=== PATIENT | female | born 1975 | race African-American/Black ===

== ENCOUNTER 2025-03-03 11:29 | Inpatient (IN) | payer OTHER ==
[~2025-03-03] VITALS: Ht 162.6 cm; Wt 102.0 kg
--- NOTE | 2025-03-03 11:54 | ECG ---
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
--- NOTE | 2025-03-03 12:49 | ED.PDOC ---
History of Present Illness HPI Comments 49-year-old female came to the ER complaining of abdominal pain discomfort for the past few days. She did have liposuction done a week ago. History of umbilical hernia repair. No radiation of the abdominal pain. She is unable to ambulate without having pain. History of hypertension diabetes. She is able to have a bowel movement. Denies nausea vomiting. Denies any other symptoms. 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 History Social History Smoker: Non-Smoker Alcohol: Denies ETOH Use Drugs: Denies Drug Use Constitutional: denies: chills, diaphoresis, fatigue, fever, malaise, sweats, weakness, others EENTM: denies: blurred vision, double vision, ear bleeding, ear discharge, ear drainage, ear pain, ear ringing, eye pain, eye redness, hearing loss, mouth pain, mouth swelling, nasal discharge, nose bleeding, nose congestion, nose pain, photophobia, tearing, throat pain, throat swelling, voice changes, others Respiratory: denies: cough, hemoptysis, orthopnea, SOB at rest, shortness of breath, SOB with excertion, stridor, wheezing, others Cardiovascular: denies: chest pain, dizzy spells, diaphoresis, Dyspnea on exertion, edema, irregular heart beat, left arm pain, lightheadedness, palpitations, PND, syncope, others Gastrointestinal: denies: abdomen distended, abdominal pain, blood streaked bowels, constipated, diarrhea, dysphagia, difficulty swallowing, hematemesis, melena, nausea, poor appetite, poor fluid intake, rectal bleeding, rectal pain, vomiting, others Genitourinary: denies: abnormal vagina bleeding, burning, dyspareunia, dysuria, flank pain, frequency, hematuria, incontinence, pain, , vagina discharge, urgency, others Neurological: denies: dizziness, fainting, headache, left sided numbness, left sided weakness, numbness, paresthesia, pre-existing deficit, right sided numbness, right sided weakness, seizure, speech problems, tingling, tremors, weakness, others Musculoskeletal: denies: back pain, gout, joint pain, joint swelling, muscle pain, muscle stiffness, neck pain, others Integumetry: denies: bruises, change in color, change in hair/nails, dryness, laceration, lesions, lumps, rash, wounds, others Allergic/Immunocompromised: denies: Difficulty Healing, Frequent Infections, Hives, Itching, others Hematologic/Lymphatic: denies: anemia, blood clots, easy bleeding, easy bruising, swollen glands, others Endocrine: denies: excessive hunger, excessive sweating, excessive thirst, excessive urination, flushing, intolerance to cold, intolerance to heat, une xplained weight gain, unexplained weight loss, others Psychiatric: denies: anxiety, bipolar disorder, depression, hopeless, panic disorder, schizophrenia, sleepless, suicidal, others Physical Exam General Appearance: Moderate Distress HEENT: Normal ENT Inspection, Pharynx Normal, TMs Normal Neck: Full Range of Motion, Non-Tender, Normal, Normal Inspection Respiratory: Chest Non-Tender, Lungs Clear, No Accessory Muscle Use, No Respiratory Distress, Normal Breath Sounds Cardiovascular: No Edema, No JVD, No Murmur, No Gallop, Normal Peripheral Pulses, Regular Rate/Rhythm Breast Exam: Deferred Gastrointestinal: No Organomegaly, Non Tender, No Pulsatile Mass, Normal Bowel Sounds, Soft Genitalia: Deferred Pelvic: Deferred Rectal: Deferred Extremities: No calf tenderness, Normal capillary refill, Normal inspection, Normal range of motion, Non-tender, No pedal edema Musculoskeletal : Apperance: Normal Neurologic: Alert, hooker on II-XII nml as Tested, No Motor Deficits, Normal Affect, Normal Mood, No Sensory Deficits Cerebellar Function: NOT DONE Reflexes: NOT DONE Skin: Dry, Normal Color, Warm Peripheral Pulses: 3+ Radial (R), 3+ Radial (L) Lymphatic: No Adenopathy Was a procedure done? Was a procedure done?: No Differential Dx Considerations may include: Anemia Electrolyte imbalance X-Ray, Labs, Meds, VS Vital Signs Date Time Temp Pulse Resp B/P (MAP) Pulse Ox O2 Delivery O2 Flow Rate FiO2 03/03/25 15:48 90 17 137/71 03/03/25 13:18 98.5 80 15 130/81 (97) 95 98.5 8/19/25 11:45 78 03/03/25 11:30 97.8 82 20 127/64 97 97.8 Lab Test 03/03/25 15:20 03/03/25 13:33 Range/Units Urine Color Light-yellow Yellow Urine Clarity Turbid H Clear Urine pH 6.0 5.0-9.0 Urine Specific [place] 1.017 1.001-1.035 Urine Protein Negative Negative Urine Ketones Negative Negative Urine Blood Negative Negative /uL Urine Nitrite Negative Negative Urine Bilirubin Negative Negative Urine Urobilinogen Normal Negative mg/dL Urine Leukocyte Esterase 1+ Negative /uL Urine RBC 3 0 - 4 /hpf Urine Microscopic WBC 5 0-5 /HPF Urine Squamous Epithelial Cells Mod <5 /hpf Urine Bacteria Few H None Seen /hpf Urine Glucose Normal Normal mg/dL White Blood Count 9.1 4.4-10.8 10^3/uL Red Blood Count 4.80 4.0-5.20 10^6/uL Hemoglobin 13.4 12.2-16.2 g/dL Hematocrit 39.6 36.0-46.0 % Mean Corpuscular Volume 82.6 80.0-100.0 fL Mean Corpuscular Hemoglobin 27.8 L 28.0-32.0 pg Mean Corpuscular Hemoglobin Concent 33.7 32.0-36.0 g/dL Red Cell Distribution Width 14.7 H 11.8-14.3 % Platelet Count 468 H 140-450 10^3/uL Mean Platelet Volume 7.2 6.9-10.8 fL Neutrophils (%) (Auto) 70.3 37.0-80.0 % Lymphocytes (%) (Auto) 20.7 10.0-50.0 % Monocytes (%) (Auto) 5.9 0.0-12.0 % Eosinophils (%) (Auto) 2.2 0.0-7.0 % Basophils (%) (Auto) 0.9 0.0-2.0 % Neutrophils # (Auto) 6.4 1.6-8.6 10 ^3/uL Lymphocytes # (Auto) 1.9 0.4-5.4 10 ^3/uL Monocytes # (Auto) 0.5 0-1.3 10 ^3/uL Eosinophils # (Auto) 0.2 0-0.8 10 ^3/uL Basophils # (Auto) 0.1 0-0.2 10 ^3/uL Nucleated Red Blood Cells 0.0 % Sodium Level 141 136-145 mmol/L Potassium Level 3.5 3.5-5.1 mmol/L Chloride Level 105 98-107 mmol/L Carbon Dioxide Level 26 20-31 mmol/L Anion Gap 10 5-15 Blood Urea Nitrogen 8 L 9-23 mg/dL Creatinine 1.13 H 0.550-1.02 mg/dL Glomerular Filtration Rate Calc 59 >90 mL/min BUN/Creatinine Ratio 7.1 L 10.0-20.0 Serum Glucose 101 74-106 mg/dL Calcium Level 9.1 8.7-10.4 mg/dL Current Medications Medications (Trade) Dose Ordered Sig/Tavo Route Start Time Stop Time Status Last Admin Sodium Chloride 1,000 ml @ 1,000 mls/hr Q1H ONCE IV 03/03/25 13:30 03/03/25 14:29 DC 03/03/25 13:42 Morphine Sulfate 2 mg ONCE ONCE IV 03/03/25 15:30 03/03/25 15:31 DC 03/03/25 15:48 Ondansetron HCl (Zofran) 4 mg ONCE ONCE IV 03/03/25 15:30 03/03/25 15:31 DC 03/03/25 15:47 Patient alert. Complaining of abdominal pain. Possible hernia. Vitals stable. Recently had liposuction. Continues to have pain. Establish intravenous access. Was given fluids. WBC within normal limits. Hemoglobin within normal limits. Urinalysis shows shows UTI. Was given Rocephin. Continue to monitor. Time of 1ST Reevaluation: 16:47 Reevaluation 1ST: Unchanged Patient Education/Counseling: Diagnosis, Treatment, Prognosis Family Education/Counseling: No Family Present SEPSIS Sepsis Screen Date sepsis recognized/suspect: Mar 03, 2025 Time Sepsis recognized/suspect: 1133 Recent Procedure: No On Antibiotic Therapy: No Respiratory Rate >20: No Heart Rate >90: No Temp<36 C (96.8 F) or >38.3 C: No SBP <90 or MAP <65 mmHG: No New Acute Mental Status Change: No Is the patient on CPAP, BIPAP,: No Physician Orders Ct Ab Pel Wo Con-No Oral Or Iv (03/03/25 16:44) Vital Signs Date Time Temp Pulse Resp B/P (MAP) Pulse Ox O2 Delivery O2 Flow Rate FiO2 03/03/25 15:48 90 17 137/71 03/03/25 13:18 98.5 80 15 130/81 (97) 95 98.5 03/03/25 11:45 78 03/03/25 11:30 97.8 82 20 127/64 97 97.8 Laboratory Tests Test 03/03/25 13:33 White Blood Count 9.1 10^3/uL (4.4-10.8) Medications Medications Dose Ordered Sig/Tavo Route Start Time Stop Time Status Last Admin Dose Admin Morphine Sulfate 2 mg ONCE ONCE IV 03/03/25 15:30 03/03/25 15:31 DC 03/03/25 15:48 Ondansetron HCl 4 mg ONCE ONCE IV 03/03/25 15:30 03/03/25 15:31 DC 03/03/25 15:47 Sodium Chloride 1,000 ml @ 1,000 mls/hr Q1H ONCE IV 03/03/25 13:30 03/03/25 14:29 DC 03/03/25 13:42 Departure 1 Departure Time of Disposition: 16:49 Impression: Primary Impression: Acute abdominal pain Additional Impression: Urinary tract infection Qualified Codes: N30.00 - Acute cystitis without hematuria Disposition: ADMITTED INPATIENT Admit to: Med Surg Condition: Guarded Critical Care Note Critical Care Time?: No Stability Stability form required: No Heart Score Heart Score: Heart Score Response (Comments) Value History N/A 0 EKG N/A 0 Age N/A 0 Risk Factors N/A 0 Troponin N/A 0 Total 0 I personally scribed for VIJAY VANEGAS MD ([email or web address]) on 03/03/25 at 12:49. Electronically submitted by Bridget Martinez ([email or web address]). VIJAY VANEGAS MD Mar 03, 2025 12:49
[2025-03-03] MEDS: SODIUM CHLORIDE 0.9% 1,000 ML IV ONE (13:42)
[2025-03-03 13:53] LABS: Hematocrit 39.6 % (36.0-46.0); Hemoglobin 13.4 g/dL (12.2-16.2); Mean Corpuscular Hemoglobin 27.8 pg (28.0-32.0); Mean Corpuscular Volume 82.6 fL (80.0-100.0); Nucleated Red Blood Cells % 0.0 %
[2025-03-03 13:54] LABS: Chloride 105 mmol/L (98-107); Sodium 141 mmol/L (136-145)
[2025-03-03 13:55] LABS: Anion Gap 10 (5-15); Carbon Dioxide 26 mmol/L (20-31)
[2025-03-03 13:56] LABS: Calcium 9.1 mg/dL (8.7-10.4); Potassium 3.5 mmol/L (3.5-5.1)
[2025-03-03 14:00] LABS: Glucose 101 mg/dL (74-106)
[2025-03-03 14:01] LABS: BUN/Creatinine Ratio 7.1 (10.0-20.0); Blood Urea Nitrogen 8 mg/dL (9-23)
[2025-03-03] MEDS: ONDANSETRON HCL 4 MG/2 ML VIAL IV ONE (15:47)
[2025-03-03] MEDS: MORPHINE SULFATE INJ 2 MG/ml SYRG IV ONE (15:48)
[2025-03-03 15:55] LABS: Urine Protein, UAD Negative (Negative)
--- NOTE | 2025-03-03 17:37 | DVH ---
Indication: hernia Technique: CT axial images of the abdomen and pelvis are obtained without contrast. Coronal and sagit mckenna reformats were obtained. Radiation Dose Information: CTDI volume is 25.48 mGy. Dose-length product is 1304.39 mGy*cm Comparison: None FINDINGS: There is limited interpretation of the abdomen and pelvis without administration of intravenous contr ast. Lung bases demonstrate no pleural effusion. Adrenal glands, spleen, pancreas unremarkable in shape. Hepatic steatosis. No CT evidence for cholel ithiasis. Kidneys demonstrate no hydronephrosis, nephrolithiasis. Small hiatal hernia. Small bowel loops are normal in caliber. Colonic diverticular disease. Moderate volume stool within the colon. Normal appendix. Abdominal aortic atherosclerotic disease. Bladder partially distended. No free pelvic fluid. No ingui nal lymphadenopathy. Anterior abdominal wall soft tissue emphysema. Extensive soft tissue edema most pronounced along the anterior abdominal wall. Subcutaneous thickening. Wlvs-[id number] thoracolumbar degenerative disc disease. Paraumbilical hernia containing fat measuring 1.9 cm. Small bilateral fat containing inguinal hernias . IMPRESSION: Limited evaluation without contrast. Periumbilical hernia containing fat measuring 1.9 cm. Extensive anterior abdominal wall edema, stranding and skin thickening with soft tissue emphysema. C orrelate clinically. Hepatic steatosis. Colonic diverticular disease. Other findings as described.
[2025-03-03] MEDS: cefTRIAXone 1GM/50ML D5W 50 ML IV ONE (17:48)
[2025-03-03 18:07] VITALS: PULSE 83; RESP 14; O2SAT 96
[2025-03-03] MEDS ORDERED: DEXTROSE (50%) 50ML SYRG IV PRN (18:45)
--- NOTE | 2025-03-03 19:14 | DVHHP2 ---
History of Present Illness Reason for Visit: Acute abdominal pain History of Present Illness The patient is a 49-year-old female with past medical history of diabetes mellitus and hypertension who presented to [facility] ED with complaint of acute abdominal pain. Patient reports symptoms progressively get worse with diffuse abdominal pain, aching sensation, rating 9/10 numeric scale, unable to ambulate due to pain. Patient was seen and evaluated in the ED, laboratory data shows WBC 9.1, platelets 468, sodium 141, potassium 3.5, BUN 8, creatinine 1.13, glucose 101, calcium 9.1, blood pressure 144/85, heart rate 83, temperature 98.4 F, O2 saturation 96% on room. Urinalysis positive for urinary tract infection. Abdomen/pelvis CT revealing periumbilical hernia containing fat measuring 1.9 cm, extensive anterior abdominal wall edema, stranding and skin thickening with some tissue emphysema, hepatic steatosis, colonic diverticular disease. Patient reports she had liposuction done a week ago. Patient was given morphine sulfate 2 mg IV x1, please see medication orders section in the computer. On my assessment, patient denied chest pain, no dizziness, no headache, no shortness of breath, no diarrhea, no nausea, no vomiting, no fever, no chills. Patient was admitted for further evaluation and medical management. Past Medical History DM, HTN, Umbilical hernia Past Surgical History Umbilical hernia repair Family History Reviewed, noncontributory to the management of this case. Past Social History The patient lives at home, denies smoking, alcohol or illicit drugs abuse. Review of Systems Constitutional: No: Fever, Chills, Sweats, Weakness, Malaise, Other Eyes: No: Pain, Vision change, Conjunctivae inflammation, Eyelid inflammation, Other, Redness ENT: No: Ear pain, Ear discharge, Nose pain, Nose discharge, Nose congestion, Mouth pain, Mouth swelling, Throat pain, Throat swelling, Other Respiratory: No: Cough, Dry, Shortness of breath, SOB with excertion, Wheezing, Hemoptysis, Pleuritic Pain, Sputum, Wheezing, Other Cardiovascular: No: Chest Pain, Palpitations, Orthopnea, Paroxysmal Noc. Dyspnea, Edema, Lt Headedness, Other Gastrointestinal: Abdominal Pain; No: Nausea, Vomiting, Diarrhea, Constipation, Melena, Hematochezia, Other Genitourinary: No Dysuria, No Frequency, No Incontinence, No Hematuria, No Retention, No Other Musculoskeletal: No: other, neck pain, shoulder pain, arm pain, back pain, hand pain, leg pain, foot pain Skin: No: Rash, Lesions, Jaundice, Bruising, Other Neurological: No: Weakness, Numbness, Incoordination, Change in speech, Confusion, Seizures, Other Allergies: Coded Allergies: NO KNOWN ALLERGIES (Unverified , 03/03/25) Medications Current Medications Medications Dose Ordered Sig/Tavo Route Start Time Stop Time Status Last Admin Dose Admin Ceftriaxone Sodium 50 ml @ 100 mls/hr DAILY@09 IV 03/04/25 09:00 UNV Diagnostic Test (Pha) 1 strip ACHS 03/03/25 22:00 UNV Insulin Human Regular ACHS SC 03/03/25 22:00 UNV Dextrose 50 ml UD PRN IV 03/03/25 18:45 UNV Sodium Chloride 10 ml Q8HR IV 03/03/25 22:00 UNV Acetaminophen/ Hydrocodone Bitart 1 tab Q4HP PRN PO 03/03/25 18:45 UNV Ondansetron HCl 4 mg Q4HP PRN IV 03/03/25 18:45 UNV Docusate Sodium 100 mg BIDPRN PRN PO 03/03/25 18:45 UNV Acetaminophen 650 mg Q6HP PRN PO 03/03/25 18:45 UNV Exam Vital Signs Vital Signs Date Time Temp Pulse Resp B/P (MAP) Pulse Ox O2 Delivery O2 Flow Rate FiO2 03/03/25 18:07 83 14 96 Room Air* 0 21 03/03/25 18:07 98.4 144/85 (104) 98.4 General Appearance: Alert, Oriented X3, Cooperative, No acute distress HEENT: Atraumatic, PERRLA, EOMI, Mucous membr. moist/pink Respiratory: Clear to auscultation, Normal air movement Cardiovascular: Regular rate, Normal S1, Normal S2, No murmurs Abdominal: Normal bowel sounds, Soft, No hepatospenomegaly, No masses, Other (Reports tenderness) Extremities: No clubbing, No cyanosis, No edema, Normal pulses, No tenderness/swelling Skin: No rashes, No breakdown, No significant lesion Neuro: Normal gait, Normal speech, Strength at 5/5 X4 ext, Normal tone, Sensation intact, Cranial nerves 3-12 NL, Reflexes 2+ Psych/Mental Status: Mental status NL, Mood NL Labs/Xrays Labs Test 03/03/25 15:20 03/03/25 13:33 Range/Units Urine Color Light-yellow Yellow Urine Clarity Turbid H Clear Urine pH 6.0 5.0-9.0 Urine Specific [place] 1.017 1.001-1.035 Urine Protein Negative Negative Urine Ketones Negative Negative Urine Blood Negative Negative /uL Urine Nitrite Negative Negative Urine Bilirubin Negative Negative Urine Urobilinogen Normal Negative mg/dL Urine Leukocyte Esterase 1+ Negative /uL Urine RBC 3 0 - 4 /hpf Urine Microscopic WBC 5 0-5 /HPF Urine Squamous Epithelial Cells Mod <5 /hpf Urine Bacteria Few H None Seen /hpf Urine Glucose Normal Normal mg/dL White Blood Count 9.1 4.4-10.8 10^3/uL Red Blood Count 4.80 4.0-5.20 10^6/uL Hemoglobin 13.4 12.2-16.2 g/dL Hematocrit 39.6 36.0-46.0 % Mean Corpuscular Volume 82.6 80.0-100.0 fL Mean Corpuscular Hemoglobin 27.8 L 28.0-32.0 pg Mean Corpuscular Hemoglobin Concent 33.7 32.0-36.0 g/dL Red Cell Distribution Width 14.7 H 11.8-14.3 % Platelet Count 468 H 140-450 10^3/uL Mean Platelet Volume 7.2 6.9-10.8 fL Neutrophils (%) (Auto) 70.3 37.0-80.0 % Lymphocytes (%) (Auto) 20.7 10.0-50.0 % Monocytes (%) (Auto) 5.9 0.0-12.0 % Eosinophils (%) (Auto) 2.2 0.0-7.0 % Basophils (%) (Auto) 0.9 0.0-2.0 % Neutrophils # (Auto) 6.4 1.6-8.6 10 ^3/uL Lymphocytes # (Auto) 1.9 0.4-5.4 10 ^3/uL Monocytes # (Auto) 0.5 0-1.3 10 ^3/uL Eosinophils # (Auto) 0.2 0-0.8 10 ^3/uL Basophils # (Auto) 0.1 0-0.2 10 ^3/uL Nucleated Red Blood Cells 0.0 % Sodium Level 141 136-145 mmol/L Potassium Level 3.5 3.5-5.1 mmol/L Chloride Level 105 98-107 mmol/L Carbon Dioxide Level 26 20-31 mmol/L Anion Gap 10 5-15 Blood Urea Nitrogen 8 L 9-23 mg/dL Creatinine 1.13 H 0.550-1.02 mg/dL Glomerular Filtration Rate Calc 59 >90 mL/min BUN/Creatinine Ratio 7.1 L 10.0-20.0 Serum Glucose 101 74-106 mg/dL Calcium Level 9.1 8.7-10.4 mg/dL PATIENT: HUSAM ANDRE ACCT: [id number] UNIT: [id number] : 1975 LOC: ER ROOM / BED: / AGE / SEX: 49 / F ADM STATUS: REG ER SERVICE 1644 ORDERING PHYSICIAN: VIJAY VANEGAS MD PROCEDURE(s): ABPL - CT AB PEL WO CON-NO ORAL OR IV REASON: hernia ORDER NUMBER(s): [id number], ACCESSION NUMBER(s): [id number] Indication: hernia Technique: CT axial images of the abdomen and pelvis are obtained without contrast. Coronal and sagittal reformats were obtained. Radiation Dose Information: CTDI volume is 25.48 mGy. Dose-length product is 1304.39 mGy*cm Comparison: None FINDINGS: There is limited interpretation of the abdomen and pelvis without administration of intravenous contrast. Lung bases demonstrate no pleural effusion. Adrenal glands, spleen, pancreas unremarkable in shape. Hepatic steatosis. No CT evidence for cholelithiasis. Kidneys demonstrate no hydronephrosis, nephrolithiasis. Small hiatal hernia. Small bowel loops are normal in caliber. Colonic diverticular disease. Moderate volume stool within the colon. Normal appendix. Abdominal aortic atherosclerotic disease. Bladder partially distended. No free pelvic fluid. No inguinal lymphadenopathy. Anterior abdominal wall soft tissue emphysema. Extensive soft tissue edema most pronounced along the anterior abdominal wall. Subcutaneous thickening. Npls-mg-irnvqwcf thoracolumbar degenerative disc disease. Paraumbilical hernia containing fat measuring 1.9 cm. Small bilateral fat containing inguinal hernias. IMPRESSION: Limited evaluation without contrast. Periumbilical hernia containing fat measuring 1.9 cm. Extensive anterior abdominal wall edema, stranding and skin thickening with soft tissue emphysema. Correlate clinically. Hepatic steatosis. Colonic diverticular disease. Other findings as described. SEPSIS Sepsis Screen Date sepsis recognized/suspect: Mar 03, 2025 Time Sepsis recognized/suspect: 3 Recent Procedure: No On Antibiotic Therapy: No Respiratory Rate >20: No Heart Rate >90: No Temp<36 C (96.8 F) or >38.3 C: No SBP <90 or MAP <65 mmHG: No New Acute Mental Status Change: No Is the patient on CPAP, BIPAP,: No Physician Orders Ct Ab Pel Wo Con-No Oral Or Iv (03/03/25 16:44) Ceftriaxone 1gm/50ml D5w (Rocephin) (03/04/25 09:00) Urine Bacterial Culture (03/03/25 18:42) Glucose Blood (Accu-Chek Comfort Curve T (03/03/25 22:00) Insulin R (Human) (Insulin R) (03/03/25 22:00) Dextrose 50% Syringe (03/03/25 18:45) Allergies (03/03/25 18:42) Code Status (03/03/25 18:42) Sodium Chloride Lock (Saline Lock Ns) (03/03/25 22:00) Oxygen Per Hour (03/03/25 18:42) Hydrocodone-Acet 5/325mg Tab ([place] 5/32 (03/03/25 18:45) Ondansetron Hcl (Zofran) (03/03/25 18:45) Docusate Sodium Capsule (Colace Capsule) (03/03/25 18:45) Complete Blood Count (03/04/25 04:00) Comprehensive Metabolic Panel (03/04/25 04:00) Cardiac Diet-2gna,Lofat,Lochol (03/04/25 Breakfast) Condition: Serious (03/03/25 18:42) Acetaminophen Tablet (Tylenol Tablet) (03/03/25 18:45) Bedrest With Bathroom Privileg (03/03/25 18:42) Sequential Compression Device (03/03/25 ) Admit (03/03/25 19:12) Nitroglycerin Sublingual (Ntrostat Subli (03/03/25 19:15) Morphine Sulfate Injection (03/03/25 19:15) Vital Signs Date Time Temp Pulse Resp B/P (MAP) Pulse Ox O2 Delivery O2 Flow Rate FiO2 03/03/25 18:07 83 14 96 Room Air* 0 21 03/03/25 18:07 98.4 83 14 144/85 (104) 96 98.4 03/03/25 16:18 84 19 142/87 03/03/25 15:48 90 17 137/71 03/03/25 13:18 98.5 80 15 130/81 (97) 95 98.5 03/03/25 11:45 78 03/03/25 11:30 97.8 82 20 127/64 97 97.8 Laboratory Tests Test 03/03/25 13:33 White Blood Count 9.1 10^3/uL (4.4-10.8) Medications Medications Dose Ordered Sig/Tavo Route Start Time Stop Time Status Last Admin Dose Admin Ceftriaxone Sodium 50 ml @ 100 mls/hr ONCE ONCE IV 03/03/25 17:00 03/03/25 17:29 DC 03/03/25 17:48 100 MLS/HR Morphine Sulfate 2 mg ONCE ONCE IV 03/03/25 15:30 03/03/25 15:31 DC 03/03/25 15:48 2 MG Ondansetron HCl 4 mg ONCE ONCE IV 03/03/25 15:30 03/03/25 15:31 DC 03/03/25 15:47 4 MG Sodium Chloride 1,000 ml @ 1,000 mls/hr Q1H ONCE IV 03/03/25 13:30 03/03/25 14:29 DC 03/03/25 13:42 1,000 MLS/HR Assessment/Plan Assessment/Plan Acute abdominal pain Urinary tract infection Acute cystitis without hematuria Plan 1. Admit to med surge unit 2. Breathing treatment 3. Pain control management 4. IV antibiotic management 5. Management of fluids and electrolytes 6. Consultation for hospitalist 7. Diagnostic test abdomen/pelvis CT 8. DVT prophylaxis on SCDs 9. Repeat labs CBC, CMP in a.m. 10. Home medication reviewed and reconciled 11. Continue with current medical management 12. Treatment plan discussed with patient and RN. Patient verbalized understanding. Plan discussed with: Patient, Other (RN) My Orders Orders - CATARINO OSORIO DNP Procedure Category Date Status Time Ceftriaxone 1gm/50ml PHA 03/04/25 Logged D5w (Rocephin) 09:00 Urine Bacterial JOSELYN 03/03/25 In Process Culture 18:42 Glucose Blood PHA 03/03/25 Logged (Accu-Chek Comfort 22:00 Insulin R (Human) PHA 03/03/25 Logged (Insulin R) 22:00 Dextrose 50% Syringe PHA 03/03/25 Logged 18:45 Allergies SHARON 03/03/25 In Process 18:42 Code Status CODE 03/03/25 Transmitted 18:42 Sodium Chloride Lock PHA 03/03/25 Logged (Saline Lock Ns) 22:00 Oxygen Per Hour RT 03/03/25 Transmitted 18:42 Hydrocodone-Acet PHA 03/03/25 Logged 5/325mg Tab ([place] 18:45 Ondansetron Hcl PHA 03/03/25 Logged (Zofran) 18:45 Docusate Sodium PHA 03/03/25 Logged Capsule (Colace 18:45 Complete Blood Count LAB 03/04/25 Verified 04:00 Comprehensive LAB 03/04/25 Verified Metabolic Panel 04:00 Cardiac DIET 03/04/25 Transmitted Diet-2gna,Lofat,Lochol Breakfast Condition: Serious SHARON 03/03/25 In Process 18:42 Acetaminophen Tablet PHA 03/03/25 Logged (Tylenol Tablet) 18:45 Bedrest With Bathroom SHARON 03/03/25 In Process Privileg 18:42 Sequential SHARON 03/03/25 In Process Compression Device Admit ADMIT 03/03/25 Verified 19:12 Nitroglycerin PHA 03/03/25 Verified Sublingual (Ntrostat 19:15 Morphine Sulfate PHA 03/03/25 Verified Injection 19:15 Problem List: (1) Acute abdominal pain (2) Urinary tract infection (3) Acute cystitis without hematuria Date of Service: Mar 03, 2025 Billing Provider: CATARINO OSORIO DNP Common Visit Codes: 16104-SEZBCNC INP/OBS CARE (HIGH) CATARINO OSORIO DNP Mar 03, 2025 19:14
[2025-03-03] MEDS ORDERED: NITROGLYCERIN 0.4 MG SL TAB SL PRN (19:15)
[2025-03-03 20:09] VITALS: PULSE 83; RESP 20; O2SAT 98
[2025-03-03] MEDS: MORPHINE SULFATE INJ 2 MG/ml SYRG IV PRN (20:45)
[2025-03-03 21:44] VITALS: BP 140/84; PULSE 82; RESP 14; RESP 16; TEMP 97.7; O2SAT 95; O2SAT 99
[2025-03-03] MEDS ORDERED: NIFE1TAB30 PO (21:49)
[2025-03-03] MEDS ORDERED: HYDR50TA47 PO (21:49)
[2025-03-03] MEDS ORDERED: METF-370 PO (21:49)
[2025-03-03] MEDS: InsuLIN REG 1unit/0.01ml Soln (100units/ml) SC SCH (22:00)
[2025-03-03] MEDS: ACCU-CHEK COMFORT CURVE STRIP VI SCH (23:32)
[2025-03-03] MEDS: SODIUM CHLOR 0.9% PF (SALINE LOCK) 10ML VIAL/SYR IV SCH (23:33)
[2025-03-04] VITALS (7 sets, daily range): BP systolic 111–134; BP diastolic 63–88; PULSE 66–87; RESP 18–20; TEMP 98–98.6; O2SAT 96–100
[2025-03-04] MEDS: ONDANSETRON HCL 4 MG/2 ML VIAL IV PRN (03:45)
[2025-03-04] MEDS: MORPHINE SULFATE INJ 2 MG/ml SYRG IV PRN (03:46)
[2025-03-04] MEDS: DOCUSATE SOD 100 MG CAP PO PRN (06:33)
[2025-03-04 07:04] LABS: Hematocrit 34.6 % (36.0-46.0); Hemoglobin 11.7 g/dL (12.2-16.2); Mean Corpuscular Hemoglobin 27.9 pg (28.0-32.0); Mean Corpuscular Volume 82.5 fL (80.0-100.0); Nucleated Red Blood Cells % 0.1 %
[2025-03-04 07:30] LABS: Alanine Aminotransferase 23 U/L (7-40); Alkaline Phosphatase 65 U/L (46-116); Anion Gap 10 (5-15); BUN/Creatinine Ratio 6.8 (10.0-20.0); Carbon Dioxide 25 mmol/L (20-31); Chloride 107 mmol/L (98-107); Glucose 99 mg/dL (74-106); Potassium 3.6 mmol/L (3.5-5.1); Sodium 142 mmol/L (136-145); Total Protein 5.8 g/dL (5.7-8.2)
[2025-03-04 07:31] LABS: Albumin 3.6 g/dL (3.2-4.8); Blood Urea Nitrogen 8 mg/dL (9-23); Calcium 8.6 mg/dL (8.7-10.4)
[2025-03-04 07:32] LABS: Bilirubin, Total 0.3 mg/dL (0.2-1.0)
[2025-03-04] MEDS: cefTRIAXone 1GM/50ML D5W 50 ML IV SCH (09:59)
[2025-03-04] MEDS: HYDROcodone-ACET 5/325MG TAB PO PRN (13:21)
--- NOTE | 2025-03-04 13:21 | DVHPN2 ---
Reviewed: Care Plan, H&P, Labs, Medications, Previous Orders, Radiology Changes from previous H/P or p: No Changes Eyes: No Pain, No Vision change, No Conjunctivae inflammation, No Eyelid inflammation, No Other, No Redness ENT: No Ear pain, No Ear discharge, No Nose pain, No Nose discharge, No Nose congestion, No Mouth pain, No Mouth swelling, No Throat pain, No Throat swelling, No Other Cardiovascular: No Chest Pain, No Palpitations, No Orthopnea, No Paroxysmal Noc. Dyspnea, No Edema, No Lt Headedness, No Other Respiratory: No Cough, No Dry, No Shortness of breath, No SOB with excertion, No Wheezing, No Hemoptysis, No Pleuritic Pain, No Sputum, No Other Gastrointestinal: No Nausea, No Vomiting; Abdominal Pain; No Diarrhea, No Constipation, No Melena, No Hematochezia, No Other Genitourinary: No Dysuria, No Frequency, No Incontinence, No Hematuria, No Retention, No Other Musculoskeletal: No other, No neck pain, No shoulder pain, No arm pain, No back pain, No hand pain, No leg pain, No foot pain Skin: No Rash, No Lesions, No Jaundice, No Bruising, No Other Objective Vitals Vital Signs Date Time Temp Pulse Resp B/P (MAP) Pulse Ox O2 Delivery O2 Flow Rate FiO2 03/04/25 10:00 71 18 127/70 03/04/25 09:00 98.3 98 98.3 03/03/25 21:44 Room Air* 0 21 Intake/Output Intake and Output 03/04/25 07:00 Intake Total 1400 ml Balance 1400 ml Intake Oral 350 ml IV Total 1050 ml # Voids 1 Medications Current Medications Medications Dose Ordered Sig/Tavo Route Start Time Stop Time Status Last Admin Dose Admin Ceftriaxone Sodium 50 ml @ 100 mls/hr DAILY@09 IV 03/04/25 09:00 03/04/25 09:59 100 MLS/HR Diagnostic Test (Pha) 1 strip ACHS 03/03/25 22:00 03/04/25 11:30 1 STRIP Insulin Human Regular ACHS SC 03/03/25 22:00 Dextrose 50 ml UD PRN IV 03/03/25 18:45 Sodium Chloride 10 ml Q8HR IV 03/03/25 22:00 03/04/25 06:11 10 ML Acetaminophen/ Hydrocodone Bitart 1 tab Q4HP PRN PO 03/03/25 18:45 Ondansetron HCl 4 mg Q4HP PRN IV 03/03/25 18:45 03/04/25 03:45 4 MG Docusate Sodium 100 mg BIDPRN PRN PO 03/03/25 18:45 03/04/25 06:33 100 MG Acetaminophen 650 mg Q6HP PRN PO 03/03/25 18:45 Nitroglycerin 0.4 mg Q5MINP PRN SL 03/03/25 19:15 Morphine Sulfate 2 mg Q30M PRN IV 03/03/25 19:15 03/03/25 20:45 2 MG Morphine Sulfate 2 mg Q4HPRN PRN IV 03/03/25 20:30 03/04/25 10:00 2 MG Laboratory Results Laboratory Tests 03/04/25 06:10 Chemistry Test 03/03/25 13:33 03/04/25 06:10 Calcium Level 9.1 mg/dL (8.7-10.4) 8.6 mg/dL (8.7-10.4) L Albumin 3.6 g/dL (3.2-4.8) Total Protein 5.8 g/dL (5.7-8.2) LFT Test 03/04/25 06:10 Alanine Aminotransferase (ALT) 23 U/L (7-40) Alkaline Phosphatase 65 U/L (46-116) Aspartate Amino Transferase (AST) 16 U/L (13-40) Total Bilirubin 0.3 mg/dL (0.2-1.0) Urinalysis Test 03/03/25 15:20 Urine Color Light-yellow (Yellow) Urine Clarity Turbid (Clear) H Urine pH 6.0 (5.0-9.0) Urine Specific [place] 1.017 (1.001-1.035) Urine Protein Negative (Negative) Urine Ketones Negative (Negative) Urine Blood Negative /uL (Negative) Urine Nitrite Negative (Negative) Urine Bilirubin Negative (Negative) Urine Urobilinogen Normal mg/dL (Negative) Urine Leukocyte Esterase 1+ /uL (Negative) Urine RBC 3 /hpf (0 - 4) Urine Microscopic WBC 5 /HPF (0-5) Urine Squamous Epithelial Cells Mod /hpf (<5) Urine Bacteria Few /hpf (None Seen) H Urine Glucose Normal mg/dL (Normal) Microbiology Microbiology Date/Time Source Procedure Growth Status 03/03/25 15:20 Voided Urine Urine Culture - Preliminary Resulted Labs and/or images reviewed: Labs reviewed by me, Image(s) reviewed by me Assessment/Plan Assessment/Plan Acute abdominal pain Acute urinary tract infection: Rocephin Umbilical hernia Diabetes Hypertension Time Spent 50 minutes Patient is full code Advanced care planning time 20 minutes Plan discussed with: Patient Date of Service: Mar 04, 2025 Billing Provider: LEÓN BAUGH MD Common Visit Codes: [id number] INP/OBS CARE(HIGH) Secondary Visit Codes: [id number] CARE PLAN 30 MINUTES LEÓN BAUGH MD Mar 04, 2025 13:21
[2025-03-04] MEDS: SODIUM CHLORIDE 0.9% 1,000 ML IV SCH (16:18)
[2025-03-05 05:00] VITALS: BP 108/71; PULSE 64; RESP 16; TEMP 98.2; O2SAT 96
[2025-03-05 09:00] VITALS: BP 108/46; PULSE 71; RESP 19; TEMP 97.9; O2SAT 99
--- NOTE | 2025-03-05 11:01 | DVHINCON2 ---
Date of service: Mar 05, 2025 Family History: Cerebrovascular accident (CVA) G8 FATHER Diabetes mellitus G8 MOTHER FH: CHF (congestive heart failure) G8 FATHER FH: kidney failure G8 FATHER Allergies: Coded Allergies: NO KNOWN ALLERGIES (Unverified , 03/03/25) Home Meds Reported Medications Metformin Hydrochloride (Metformin Hcl) 500 Mg Tab, 1 TAB PO BID, #60 TAB 3 Refills 03/03/25 Nifedipine (Nifedipine Er) 60 Mg Tab, 1 TAB PO DAILY, #30 TAB 5 Refills 03/03/25 Hydralazine Hcl (Hydralazine Hcl) 50 Mg Tab, 1 TAB PO BID, #180 TAB 3 Refills 03/03/25 Current Medications Current Medications Medications (Trade) Dose Ordered Sig/Tavo Route PRN Reason Start Time Stop Time Status Last Admin Sodium Chloride 1,000 ml @ 150 mls/hr Q6H40M IV 03/04/25 14:30 03/05/25 04:14 Diphenhydramine HCl (Benadryl Capsule) 25 mg Q8HP PRN PO FOR ITCHING 03/04/25 14:30 03/05/25 06:37 Hydralazine HCl (Apresoline Tablet) 50 mg Q12HR PO 03/04/25 22:00 03/04/25 21:15 Nifedipine (Procardia Xl (Time-Release)) 60 mg DAILY PO 03/05/25 10:00 Vital Signs Vital Signs Date Time Temp Pulse Resp B/P (MAP) Pulse Ox O2 Delivery O2 Flow Rate FiO2 03/05/25 09:00 97.9 71 19 108/46 (66) 99 97.9 03/05/25 08:00 Room Air* 0 21 Labs/Diagnostic Data Labs Test 03/05/25 06:09 03/04/25 06:10 03/03/25 15:20 Range/Units POC Glucose 103 70-106 mg/dl White Blood Count 8.0 4.4-10.8 10^3/uL Red Blood Count 4.19 4.0-5.20 10^6/uL Hemoglobin 11.7 L 12.2-16.2 g/dL Hematocrit 34.6 #L 36.0-46.0 % Mean Corpuscular Volume 82.5 80.0-100.0 fL Mean Corpuscular Hemoglobin 27.9 L 28.0-32.0 pg Mean Corpuscular Hemoglobin Concent 33.8 32.0-36.0 g/dL Red Cell Distribution Width 14.6 H 11.8-14.3 % Platelet Count 406 140-450 10^3/uL Mean Platelet Volume 7.1 6.9-10.8 fL Neutrophils (%) (Auto) 68.7 37.0-80.0 % Lymphocytes (%) (Auto) 22.3 10.0-50.0 % Monocytes (%) (Auto) 6.0 0.0-12.0 % Eosinophils (%) (Auto) 2.4 0.0-7.0 % Basophils (%) (Auto) 0.6 0.0-2.0 % Neutrophils # (Auto) 5.5 1.6-8.6 10 ^3/uL Lymphocytes # (Auto) 1.8 0.4-5.4 10 ^3/uL Monocytes # (Auto) 0.5 0-1.3 10 ^3/uL Eosinophils # (Auto) 0.2 0-0.8 10 ^3/uL Basophils # (Auto) 0 0-0.2 10 ^3/uL Nucleated Red Blood Cells 0.1 % Sodium Level 142 136-145 mmol/L Potassium Level 3.6 3.5-5.1 mmol/L Chloride Level 107 98-107 mmol/L Carbon Dioxide Level 25 20-31 mmol/L Anion Gap 10 5-15 Blood Urea Nitrogen 8 L 9-23 mg/dL Creatinine 1.17 H 0.550-1.02 mg/dL Glomerular Filtration Rate Calc 57 >90 mL/min BUN/Creatinine Ratio 6.8 L 10.0-20.0 Serum Glucose 99 74-106 mg/dL Calcium Level 8.6 L 8.7-10.4 mg/dL Total Bilirubin 0.3 0.2-1.0 mg/dL Aspartate Amino Transferase (AST) 16 13-40 U/L Alanine Aminotransferase (ALT) 23 7-40 U/L Alkaline Phosphatase 65 46-116 U/L Total Protein 5.8 5.7-8.2 g/dL Albumin 3.6 3.2-4.8 g/dL Lipase 28 12-53 U/L Urine Color Light-yellow Yellow Urine Clarity Turbid H Clear Urine pH 6.0 5.0-9.0 Urine Specific [place] 1.017 1.001-1.035 Urine Protein Negative Negative Urine Ketones Negative Negative Urine Blood Negative Negative /uL Urine Nitrite Negative Negative Urine Bilirubin Negative Negative Urine Urobilinogen Normal Negative mg/dL Urine Leukocyte Esterase 1+ Negative /uL Urine RBC 3 0 - 4 /hpf Urine Microscopic WBC 5 0-5 /HPF Urine Squamous Epithelial Cells Mod <5 /hpf Urine Bacteria Few H None Seen /hpf Urine Glucose Normal Normal mg/dL Microbiology Date/Time Source Procedure Growth Status 03/03/25 15:20 Voided Urine Urine Culture - Preliminary Resulted Assessment 49 YEARS OLD FEMALE WHO HAD A PRIOR UMBILICAL HERNIA REPAIR WITH MESH AND A WEEKS AGO HAD ABDOMINAL WALL LIPOSUCTION NOW PRESENTING WITH ABDOMINAL PAIN, HAS A 2 CM UMBILICAL HERNIA AND PERIUMBILICAL SKIN ERYTHEMA AND EXQUISITE TENDERNESS. IT IS IMPOSSIBLE TO TELL WHETHER THE PERIUMBILICAL FINDINGS ARE DUE TO THE RECENT LIPOSUCTION VS INFECTED MESH IN THE UMBILICAL HERNIA. WILL PROCEED WITH REMOVAL OF THE MESH AND REPAIR OF THE RECURRING UMBILICAL HERNIA. RISKS AND COMPLICATIONS OF THE OPERATION WERE [id number] IN DETAIL Plan discussed with: Patient DELISA EGAN MD Mar 05, 2025 11:01
--- NOTE | 2025-03-05 11:20 | DVHPN2 ---
Reviewed: Care Plan, H&P, Labs, Medications, Previous Orders, Radiology Changes from previous H/P or p: No Changes Eyes: No Pain, No Vision change, No Conjunctivae inflammation, No Eyelid inflammation, No Other, No Redness ENT: No Ear pain, No Ear discharge, No Nose pain, No Nose discharge, No Nose congestion, No Mouth pain, No Mouth swelling, No Throat pain, No Throat swelling, No Other Cardiovascular: No Chest Pain, No Palpitations, No Orthopnea, No Paroxysmal Noc. Dyspnea, No Edema, No Lt Headedness, No Other Respiratory: No Cough, No Dry, No Shortness of breath, No SOB with excertion, No Wheezing, No Hemoptysis, No Pleuritic Pain, No Sputum, No Other Gastrointestinal: No Nausea, No Vomiting; Abdominal Pain; No Diarrhea, No Constipation, No Melena, No Hematochezia, No Other Genitourinary: No Dysuria, No Frequency, No Incontinence, No Hematuria, No Retention, No Other Musculoskeletal: No other, No neck pain, No shoulder pain, No arm pain, No back pain, No hand pain, No leg pain, No foot pain Skin: No Rash, No Lesions, No Jaundice, No Bruising, No Other Objective Vitals Vital Signs Date Time Temp Pulse Resp B/P (MAP) Pulse Ox O2 Delivery O2 Flow Rate FiO2 03/05/25 11:00 65 19 132/78 03/05/25 09:00 97.9 99 97.9 03/05/25 08:00 Room Air* 0 21 Intake/Output Intake and Output 03/05/25 07:00 Intake Total 1150 ml Output Total 400 ml Balance 750 ml Intake Oral 1150 ml Output Urine Total 400 ml # Voids 5 Medications Current Medications Medications Dose Ordered Sig/Tavo Route Start Time Stop Time Status Last Admin Dose Admin Ceftriaxone Sodium 50 ml @ 100 mls/hr DAILY@09 IV 03/04/25 09:00 03/05/25 10:59 100 MLS/HR Diagnostic Test (Pha) 1 strip ACHS 03/03/25 22:00 03/05/25 11:10 1 STRIP Insulin Human Regular ACHS SC 03/03/25 22:00 Dextrose 50 ml UD PRN IV 03/03/25 18:45 Sodium Chloride 10 ml Q8HR IV 03/03/25 22:00 03/05/25 05:10 10 ML Acetaminophen/ Hydrocodone Bitart 1 tab Q4HP PRN PO 03/03/25 18:45 03/05/25 00:20 1 TAB Ondansetron HCl 4 mg Q4HP PRN IV 03/03/25 18:45 03/04/25 21:42 4 MG Docusate Sodium 100 mg BIDPRN PRN PO 03/03/25 18:45 03/04/25 06:33 100 MG Acetaminophen 650 mg Q6HP PRN PO 03/03/25 18:45 Nitroglycerin 0.4 mg Q5MINP PRN SL 03/03/25 19:15 Morphine Sulfate 2 mg Q30M PRN IV 03/03/25 19:15 03/05/25 04:25 2 MG Morphine Sulfate 2 mg Q4HPRN PRN IV 03/03/25 20:30 03/05/25 11:00 2 MG Sodium Chloride 1,000 ml @ 150 mls/hr Q6H40M IV 03/04/25 14:30 03/05/25 10:30 150 MLS/HR Diphenhydramine HCl 25 mg Q8HP PRN PO 03/04/25 14:30 03/05/25 06:37 25 MG Hydralazine HCl 50 mg Q12HR PO 03/04/25 22:00 03/05/25 10:59 50 MG Nifedipine 60 mg DAILY PO 03/05/25 10:00 03/05/25 10:59 60 MG Laboratory Results Laboratory Tests 03/04/25 06:10 Urinalysis Test 03/03/25 15:20 Urine Color Light-yellow (Yellow) Urine Clarity Turbid (Clear) H Urine pH 6.0 (5.0-9.0) Urine Specific [place] 1.017 (1.001-1.035) Urine Protein Negative (Negative) Urine Ketones Negative (Negative) Urine Blood Negative /uL (Negative) Urine Nitrite Negative (Negative) Urine Bilirubin Negative (Negative) Urine Urobilinogen Normal mg/dL (Negative) Urine Leukocyte Esterase 1+ /uL (Negative) Urine RBC 3 /hpf (0 - 4) Urine Microscopic WBC 5 /HPF (0-5) Urine Squamous Epithelial Cells Mod /hpf (<5) Urine Bacteria Few /hpf (None Seen) H Urine Glucose Normal mg/dL (Normal) Microbiology Microbiology Date/Time Source Procedure Growth Status 03/03/25 15:20 Voided Urine Urine Culture - Final Complete Labs and/or images reviewed: Labs reviewed by me, Image(s) reviewed by me Assessment/Plan Assessment/Plan Acute abdominal pain History of umbilical hernia repair with mesh in [place] August 2024 History of liposuction one week ago at [place] Possible anterior abdominal wall infection following liposuction or periumbilical hernia mesh infection; surgeon Dr. Emerson planning for removal of the mesh Acute urinary tract infection: Rocephin Umbilical hernia Diabetes Hypertension Time Spent 50 minutes Patient is full code Advanced care planning time 20 minutes Plan discussed with: Patient My Orders Orders - LEÓN BAUGH MD Procedure Category Date Status Time Sodium Chloride 0.9% PHA 03/04/25 In Process 14:30 Diphenhdramine PHA 03/04/25 In Process Capsule (Benadryl 14:30 *Cons[address] Dr[address] Emerson CONS 03/04/25 Transmitted 14:19 Hydralazine Hcl PHA 03/04/25 In Process Tablet (Apresoline 22:00 Nifedipine Er PHA 03/05/25 In Process (Procardia Xl 10:00 Date of Service: Mar 05, 2025 Billing Provider: LEÓN BAUGH MD Common Visit Codes: [id number] INP/OBS CARE(HIGH) LEÓN BAUGH MD Mar 05, 2025 11:20
[2025-03-05 12:59] LABS: INR 1.01 (0.9-1.15); Partial Thromboplastin Time 25.6 SEC (24.5-34.5); Prothrombin Time 10.7 sec (9.3-11.8)
[2025-03-05 13:00] VITALS: BP 123/81; PULSE 72; RESP 19; TEMP 97.8; O2SAT 96
[2025-03-05 17:00] VITALS: BP 116/71; PULSE 85; RESP 19; TEMP 98.1; O2SAT 99
[2025-03-05 20:00] VITALS: PULSE 93; RESP 20; O2SAT 99
--- NOTE | 2025-03-05 20:26 | DVH ---
CLINICAL HISTORY: pre op TECHNIQUE: View of the chest was obtained. WID: COMPARISON: None FINDINGS: Lungs: clear Cardiomediastinal silhouette: normal in size Bones: No acute osseous abnormality. Imaged upper Abdomen: unremarkable. IMPRESSION: 1. NO ACUTE CARDIOPULMONARY PROCESS.
[2025-03-05 21:00] VITALS: BP 122/75; PULSE 93; RESP 20; TEMP 98.2; O2SAT 99
[2025-03-06] VITALS (9 sets, daily range): BP systolic 110–136; BP diastolic 67–82; PULSE 69–93; RESP 18–21; TEMP 97.4–98.3; O2SAT 96–100
[2025-03-06] MEDS ORDERED: KETAMINE 50mg/ML 1ml syringe ONE (08:00)
[2025-03-06] MEDS ORDERED: PROPOFOL 10 MG/ML 20 ML IV ONE (08:00)
[2025-03-06] MEDS ORDERED: ROCURONIUM 10MG/ML 10ML VIAL IV ONE (08:00)
[2025-03-06] MEDS ORDERED: fentaNYL CITRATE 100 MCG/2 ML VL ONE (08:00)
[2025-03-06] MEDS ORDERED: LIDOCAINE 1% INJ PF 5ML AMP ONE (08:00)
[2025-03-06] MEDS ORDERED: ONDANSETRON HCL 4 MG/2 ML VIAL ONE (08:00)
[2025-03-06] MEDS ORDERED: HYDROmorphone HCL 2 MG/ML VL/or syr ONE (08:00)
[2025-03-06] MEDS ORDERED: SODIUM CHLORIDE LOCK 10 ML ONE (08:00)
[2025-03-06] MEDS ORDERED: LIDOCAINE HCL 2% TOP JELLY 5ML TOP ONE (08:00)
[2025-03-06] MEDS ORDERED: MIDAZOLAM HCL 2MG/2ML 2ml VIAL (1mg/ml) ONE (08:00)
[2025-03-06 08:28] LABS: Hematocrit 36.2 % (36.0-46.0); Hemoglobin 11.8 g/dL (12.2-16.2); Mean Corpuscular Hemoglobin 27.3 pg (28.0-32.0); Mean Corpuscular Volume 83.4 fL (80.0-100.0); Nucleated Red Blood Cells % 0.1 %
[2025-03-06 08:48] LABS: Alanine Aminotransferase 25 U/L (7-40); Albumin 3.7 g/dL (3.2-4.8); Alkaline Phosphatase 65 U/L (46-116); Anion Gap 9 (5-15); BUN/Creatinine Ratio 6.3 (10.0-20.0); Blood Urea Nitrogen 7 mg/dL (9-23); Calcium 8.5 mg/dL (8.7-10.4); Carbon Dioxide 26 mmol/L (20-31); Chloride 107 mmol/L (98-107); Glucose 109 mg/dL (74-106); Potassium 3.5 mmol/L (3.5-5.1); Sodium 142 mmol/L (136-145); Total Protein 6.1 g/dL (5.7-8.2)
[2025-03-06 08:54] LABS: Bilirubin, Total 0.3 mg/dL (0.2-1.0)
[2025-03-06] MEDS ORDERED: MORPHINE SULFATE 4 MG/ML SYR/VIAL IV PRN (10:30)
[2025-03-06] MEDS ORDERED: HYDROmorphone HCL 2 MG/ML VL/or syr IV PRN (10:30)
[2025-03-06] MEDS ORDERED: METOCLOPRAMIDE HCL 5MG/ml INJ 2ml VIAL IV PRN (10:30)
--- NOTE | 2025-03-06 10:33 | DVHPN2 ---
Reviewed: Care Plan, H&P, Labs, Medications, Previous Orders, Radiology Changes from previous H/P or p: No Changes Eyes: No Pain, No Vision change, No Conjunctivae inflammation, No Eyelid inflammation, No Other, No Redness ENT: No Ear pain, No Ear discharge, No Nose pain, No Nose discharge, No Nose congestion, No Mouth pain, No Mouth swelling, No Throat pain, No Throat swelling, No Other Cardiovascular: No Chest Pain, No Palpitations, No Orthopnea, No Paroxysmal Noc. Dyspnea, No Edema, No Lt Headedness, No Other Respiratory: No Cough, No Dry, No Shortness of breath, No SOB with excertion, No Wheezing, No Hemoptysis, No Pleuritic Pain, No Sputum, No Other Gastrointestinal: No Nausea, No Vomiting; Abdominal Pain; No Diarrhea, No Constipation, No Melena, No Hematochezia, No Other Genitourinary: No Dysuria, No Frequency, No Incontinence, No Hematuria, No Retention, No Other Musculoskeletal: No other, No neck pain, No shoulder pain, No arm pain, No back pain, No hand pain, No leg pain, No foot pain Skin: No Rash, No Lesions, No Jaundice, No Bruising, No Other Objective Vitals Vital Signs Date Time Temp Pulse Resp B/P (MAP) Pulse Ox O2 Delivery O2 Flow Rate FiO2 03/06/25 09:00 98.0 80 18 121/82 (95) 99 98.0 03/06/25 08:00 Room Air* 0 21 Intake/Output Intake and Output 03/06/25 07:00 Intake Total 1100 ml Balance 1100 ml Intake Oral 1100 ml # Voids 9 Medications Current Medications Medications Dose Ordered Sig/Tavo Route Start Time Stop Time Status Last Admin Dose Admin Ceftriaxone Sodium 50 ml @ 100 mls/hr DAILY@09 IV 03/04/25 09:00 03/05/25 10:59 100 MLS/HR Diagnostic Test (Pha) 1 strip ACHS 03/03/25 22:00 03/06/25 06:17 1 STRIP Insulin Human Regular ACHS SC 03/03/25 22:00 Dextrose 50 ml UD PRN IV 03/03/25 18:45 Sodium Chloride 10 ml Q8HR IV 03/03/25 22:00 03/06/25 05:14 10 ML Acetaminophen/ Hydrocodone Bitart 1 tab Q4HP PRN PO 03/03/25 18:45 03/05/25 15:29 1 TAB Ondansetron HCl 4 mg Q4HP PRN IV 03/03/25 18:45 03/04/25 21:42 4 MG Docusate Sodium 100 mg BIDPRN PRN PO 03/03/25 18:45 03/05/25 17:10 100 MG Acetaminophen 650 mg Q6HP PRN PO 03/03/25 18:45 Nitroglycerin 0.4 mg Q5MINP PRN SL 03/03/25 19:15 Morphine Sulfate 2 mg Q30M PRN IV 03/03/25 19:15 03/05/25 04:25 2 MG Morphine Sulfate 2 mg Q4HPRN PRN IV 03/03/25 20:30 03/05/25 20:05 2 MG Sodium Chloride 1,000 ml @ 150 mls/hr Q6H40M IV 03/04/25 14:30 03/05/25 23:50 150 MLS/HR Diphenhydramine HCl 25 mg Q8HP PRN PO 03/04/25 14:30 03/05/25 06:37 25 MG Hydralazine HCl 50 mg Q12HR PO 03/04/25 22:00 03/05/25 21:51 50 MG Nifedipine 60 mg DAILY PO 03/05/25 10:00 03/05/25 10:59 60 MG Metoclopramide HCl 10 mg ONCE PRN IV 03/06/25 10:30 03/06/25 12:00 Hydromorphone HCl 0.5 mg Q10M PRN IV 03/06/25 10:30 03/06/25 11:11 Morphine Sulfate 2 mg Q4H PRN IV 03/06/25 10:30 03/06/25 14:31 Hydromorphone HCl 0.25 mg Q10M PRN IV 03/06/25 10:30 03/06/25 11:01 Morphine Sulfate 1 mg Q30M PRN IV 03/06/25 11:00 03/06/25 13:01 Laboratory Results Laboratory Tests 03/06/25 08:03 Chemistry Test 03/06/25 08:03 Albumin 3.7 g/dL (3.2-4.8) Calcium Level 8.5 mg/dL (8.7-10.4) L Total Protein 6.1 g/dL (5.7-8.2) Coagulation Test 03/05/25 11:58 Prothrombin Time 10.7 sec (9.3-11.8) Prothrombin Time INR 1.01 (0.9-1.15) Activated Partial Thromboplast Time 25.6 SEC (24.5-34.5) LFT Test 03/06/25 08:03 Alanine Aminotransferase (ALT) 25 U/L (7-40) Alkaline Phosphatase 65 U/L (46-116) Aspartate Amino Transferase (AST) 18 U/L (13-40) Total Bilirubin 0.3 mg/dL (0.2-1.0) Urinalysis Test 03/03/25 15:20 Urine Color Light-yellow (Yellow) Urine Clarity Turbid (Clear) H Urine pH 6.0 (5.0-9.0) Urine Specific [place] 1.017 (1.001-1.035) Urine Protein Negative (Negative) Urine Ketones Negative (Negative) Urine Blood Negative /uL (Negative) Urine Nitrite Negative (Negative) Urine Bilirubin Negative (Negative) Urine Urobilinogen Normal mg/dL (Negative) Urine Leukocyte Esterase 1+ /uL (Negative) Urine RBC 3 /hpf (0 - 4) Urine Microscopic WBC 5 /HPF (0-5) Urine Squamous Epithelial Cells Mod /hpf (<5) Urine Bacteria Few /hpf (None Seen) H Urine Glucose Normal mg/dL (Normal) Microbiology Microbiology Date/Time Source Procedure Growth Status 03/03/25 15:20 Voided Urine Urine Culture - Final Complete Labs and/or images reviewed: Labs reviewed by me, Image(s) reviewed by me Assessment/Plan Assessment/Plan Acute abdominal pain History of umbilical hernia repair with mesh in [place] August 2024 History of liposuction one week ago at [place] Possible anterior abdominal wall infection following liposuction or periumbilical hernia mesh infection; surgeon Dr. Emerson planning for removal of the mesh Acute urinary tract infection: Rocephin Umbilical hernia Diabetes Hypertension Time Spent 50 minutes Patient is full code Advanced care planning time 20 minutes Plan discussed with: Patient My Orders Orders - LEÓN BAUGH MD Procedure Category Date Status Time Comprehensive LAB 03/07/25 Verified Metabolic Panel 05:00 Comprehensive LAB 03/08/25 Verified Metabolic Panel 05:00 Complete Blood Count LAB 03/07/25 Verified 05:00 Complete Blood Count LAB 03/08/25 Verified 05:00 Blood Culture JOSELYN 03/05/25 In Process 12:55 Chest Xray 1 View XY 03/05/25 Resulted 18:30 Date of Service: Mar 06, 2025 Billing Provider: LEÓN BAUGH MD Common Visit Codes: [id number] INP/OBS CARE(HIGH) LEÓN BAUGH MD Mar 06, 2025 10:33
[2025-03-06] MEDS ORDERED: NEOSTIGMINE 1 MG/ML INJ (10mg/10ML VIAL) ONE (10:43)
[2025-03-06] MEDS ORDERED: GLYCOPYRROLATE 0.2 MG/ML 1ML VIAL ONE (10:43)
[2025-03-06] MEDS: BUPIVACAINE 0.5% P/F INJ 10 ML VIAL ONE (10:55)
[2025-03-06] MEDS: LIDOCAINE W/ EPINEPHRINE 1% 20ML VIAL ONE (10:55)
[2025-03-06] MEDS ORDERED: MORPHINE SULFATE INJ 2 MG/ml SYRG IV PRN (11:00)
--- NOTE | 2025-03-06 11:46 | DVHOP ---
DATE OF SURGERY: 03/06/2025 PREOPERATIVE DIAGNOSES: * Extensive cellulitis, abdominal wall. * Abdominal pain. * Umbilical hernia. POSTOPERATIVE DIAGNOSES: * Extensive inflammatory changes due to recent liposuction. * Incarcerated umbilical hernia. * Infected mesh from previous hernia repair. DESCRIPTION OF PROCEDURE: Under general anesthesia with the patient's skin prepped and draped, indurated abdominal wall was incised in a vertical fashion for a length approximating 12 cm. The patient's subcutaneous tissues were extensively indurated and there was evidence of pus that emanated from the induration. This pus was sent for cultures and sensitivities. Meticulous digital dissection revealed incarcerated infraumbilical hernia that measured approximately 1 cm in diameter and contained incarcerated necrotic fat. This was excised and submitted for histopathologic confirmation. Subsequently, a sheet of plastic, which was used by previous hernia repair operation surgeon, which measured 9 x 13 cm was excised with a great deal of difficulty due to its dense adherence to the abdominal wall and the underlying viscera. Following excision of this large piece of plastic, which was submitted for laboratory evaluation, a #1 double-stranded PDS suture line was used to approximate the midline abdominal wall thus incorporating the hernia repair into the closure. The indurated inflamed subcutaneous tissues were drained by means of a 10-mm Melo-Aivla drain, which was exteriorized through a separate 5-mm incision secured with a 2-0 nylon suture. The wound was then approximated using metallic skin lane. The patient remained hemodynamically stable throughout the procedure and left the operating room following an accurate needle and sponge count. Her , Elia Marks, was thoroughly informed in the waiting area. MD NORMA Weathers/AZAM TID: [id number] RECEIPT: [id number]
[2025-03-06] MEDS: ceFAZolin 2 GM/D5W50ml 50 ML IV ONE (11:51)
[2025-03-06] MEDS: KETOROLAC TROMETH 30 MG/ML 1ML VIAL IV ONE (11:51)
[2025-03-06] MEDS: ceFAZolin 1GM VL ONE (11:52)
[2025-03-06] MEDS: POVIDONE IODINE 10 % TOPICAL OINT 30GM TOP ONE (11:52)
[2025-03-06] MEDS: ACETAMINOPHEN IV 1000 MG/100ML (10MG/ML) IV ONE (12:05)
[2025-03-06] MEDS: ACETAMINOPHEN IV 100 ML IV ONE (12:18)
[2025-03-06] MEDS: HYDROmorphone HCL 2 MG/ML VL/or syr IV PRN ×2 (12:27→15:15)
[2025-03-06] MEDS: ONDANSETRON HCL 4 MG/2 ML VIAL IV PRN (12:42)
[2025-03-06] MEDS: cefTRIAXone 1GM/50ML D5W 50 ML IV ONE (14:08)
[2025-03-06] MEDS: D5W/SOD CHL 0.45%/KCL 20MEQ 1,000 ML IV SCH (16:57)
[2025-03-07 05:00] VITALS: BP 121/73; PULSE 85; RESP 18; TEMP 97.6; O2SAT 96
[2025-03-07 08:04] LABS: Nucleated Red Blood Cells % 0.1 %
[2025-03-07 08:06] LABS: Hematocrit 34.7 % (36.0-46.0); Hemoglobin 11.2 g/dL (12.2-16.2); Mean Corpuscular Hemoglobin 26.8 pg (28.0-32.0); Mean Corpuscular Volume 82.7 fL (80.0-100.0)
[2025-03-07 08:15] LABS: Alanine Aminotransferase 22 U/L (7-40); Albumin 3.6 g/dL (3.2-4.8); Alkaline Phosphatase 62 U/L (46-116); Anion Gap 11 (5-15); BUN/Creatinine Ratio 6.1 (10.0-20.0); Bilirubin, Total 0.3 mg/dL (0.2-1.0); Calcium 8.9 mg/dL (8.7-10.4); Carbon Dioxide 25 mmol/L (20-31); Chloride 106 mmol/L (98-107); Glucose 102 mg/dL (74-106); Sodium 142 mmol/L (136-145); Total Protein 6.0 g/dL (5.7-8.2)
[2025-03-07 08:29] LABS: Blood Urea Nitrogen 7 mg/dL (9-23); Potassium 3.3 mmol/L (3.5-5.1)
[2025-03-07 08:30] VITALS: BP 113/71; PULSE 84; RESP 14; TEMP 98; O2SAT 93
--- NOTE | 2025-03-07 08:43 | DVHPN2 ---
Progress Note Date Seen: Mar 07, 2025 Medical Necessity Reason Pt with a Central, PICC or Fol: No Objective vital signs Vital Sign Date Time Temp Pulse Resp B/P (MAP) Pulse Ox O2 Delivery O2 Flow Rate FiO2 03/07/25 06:07 86 16 119/74 03/07/25 05:00 97.6 96 97.6 03/06/25 20:15 Nasal Cannula* 2 28 Total Intake and Output 03/06/25 03/06/25 03/07/25 15:00 23:00 07:00 Intake Total 150 ml 650 ml 700 ml Output Total 20 ml Balance 130 ml 650 ml 700 ml medications Current Medications Medications Dose Ordered Sig/Tavo Route Start Time Stop Time Status Last Admin Dose Admin Diagnostic Test (Pha) 1 strip ACHS 03/03/25 22:00 03/07/25 07:00 1 STRIP Insulin Human Regular ACHS SC 03/03/25 22:00 Dextrose 50 ml UD PRN IV 03/03/25 18:45 Sodium Chloride 10 ml Q8HR IV 03/03/25 22:00 03/07/25 06:00 10 ML Acetaminophen/ Hydrocodone Bitart 1 tab Q4HP PRN PO 03/03/25 18:45 03/06/25 23:20 1 TAB Docusate Sodium 100 mg BIDPRN PRN PO 03/03/25 18:45 03/05/25 17:10 100 MG Acetaminophen 650 mg Q6HP PRN PO 03/03/25 18:45 Nitroglycerin 0.4 mg Q5MINP PRN SL 03/03/25 19:15 Morphine Sulfate 2 mg Q30M PRN IV 03/03/25 19:15 03/05/25 04:25 2 MG Diphenhydramine HCl 25 mg Q8HP PRN PO 03/04/25 14:30 03/05/25 06:37 25 MG Hydralazine HCl 50 mg Q12HR PO 03/04/25 22:00 03/06/25 21:40 50 MG Nifedipine 60 mg DAILY PO 03/05/25 10:00 03/05/25 10:59 60 MG Potassium Chloride/Dextrose/ Sod Cl 1,000 ml @ 120 mls/hr Q8H20M IV 03/06/25 11:00 03/06/25 16:57 120 MLS/HR Ceftriaxone Sodium 50 ml @ 100 mls/hr DAILY@09 IV 03/07/25 09:00 Metronidazole 100 ml @ 100 mls/hr Q8HR IV 03/06/25 14:00 03/07/25 05:35 100 MLS/HR Hydromorphone HCl 1 mg Q3HPRN PRN IV 03/06/25 11:00 03/07/25 05:37 1 MG Ondansetron HCl 4 mg Q4HPRN PRN IV 03/06/25 11:00 03/07/25 05:42 4 MG Pantoprazole Sodium 40 mg DAILY IV 03/07/25 10:00 laboratory and microbiology Laboratory Tests 03/07/25 05:40 Test 03/07/25 05:40 Range/Units Serum Glucose 102 74-106 mg/dL Problem List/Assessment/Plan Problem List/Assessment/Plan 03/07/25 LESS TENDER THAN BEFORE OPERATION, OPERATIVE FINDINGS DISCUSSED WITH PATIENT, WOUND CLEAN AND WELL APPROXIMATED, DRAINAGE NON PURULENT. WILL ADVANCE DIET AND AQMBULATION, POSSIBLY DC IN AM Plan discussed with: Patient Dietary Evaluation Review Comments: 1) Advance to [facility] 60gm GI soft diet as medically feasible 2) Refer [employer] for diabetes education 3) Monitor NPO status, lab values, weight trend, and I/O Expected Outcomes/Goals: To meet >75% estimated needs Fu 2-3 days DELISA EGAN MD Mar 07, 2025 08:43
--- NOTE | 2025-03-07 10:45 | DVHPN2 ---
Reviewed: Care Plan, H&P, Labs, Medications, Previous Orders, Radiology Changes from previous H/P or p: No Changes Eyes: No Pain, No Vision change, No Conjunctivae inflammation, No Eyelid inflammation, No Other, No Redness ENT: No Ear pain, No Ear discharge, No Nose pain, No Nose discharge, No Nose congestion, No Mouth pain, No Mouth swelling, No Throat pain, No Throat swelling, No Other Cardiovascular: No Chest Pain, No Palpitations, No Orthopnea, No Paroxysmal Noc. Dyspnea, No Edema, No Lt Headedness, No Other Respiratory: No Cough, No Dry, No Shortness of breath, No SOB with excertion, No Wheezing, No Hemoptysis, No Pleuritic Pain, No Sputum, No Other Gastrointestinal: No Nausea, No Vomiting; Abdominal Pain; No Diarrhea, No Constipation, No Melena, No Hematochezia, No Other Genitourinary: No Dysuria, No Frequency, No Incontinence, No Hematuria, No Retention, No Other Musculoskeletal: No other, No neck pain, No shoulder pain, No arm pain, No back pain, No hand pain, No leg pain, No foot pain Skin: No Rash, No Lesions, No Jaundice, No Bruising, No Other Objective Vitals Vital Signs Date Time Temp Pulse Resp B/P (MAP) Pulse Ox O2 Delivery O2 Flow Rate FiO2 03/07/25 08:30 98.0 84 14 113/71 (85) 93 98.0 03/06/25 20:15 Nasal Cannula* 2 28 Intake/Output Intake and Output 03/07/25 07:00 Intake Total 1500 ml Output Total 20 ml Balance 1480 ml Intake Oral 450 ml IV Total 1050 ml Drainage Total 20 ml # Voids 6 # Bowel Movements 1 Medications Current Medications Medications Dose Ordered Sig/Tavo Route Start Time Stop Time Status Last Admin Dose Admin Diagnostic Test (Pha) 1 strip ACHS 03/03/25 22:00 03/07/25 07:00 1 STRIP Insulin Human Regular ACHS SC 03/03/25 22:00 Dextrose 50 ml UD PRN IV 03/03/25 18:45 Sodium Chloride 10 ml Q8HR IV 03/03/25 22:00 03/07/25 06:00 10 ML Acetaminophen/ Hydrocodone Bitart 1 tab Q4HP PRN PO 03/03/25 18:45 03/06/25 23:20 1 TAB Docusate Sodium 100 mg BIDPRN PRN PO 03/03/25 18:45 03/05/25 17:10 100 MG Acetaminophen 650 mg Q6HP PRN PO 03/03/25 18:45 Nitroglycerin 0.4 mg Q5MINP PRN SL 03/03/25 19:15 Morphine Sulfate 2 mg Q30M PRN IV 03/03/25 19:15 03/05/25 04:25 2 MG Diphenhydramine HCl 25 mg Q8HP PRN PO 03/04/25 14:30 03/05/25 06:37 25 MG Hydralazine HCl 50 mg Q12HR PO 03/04/25 22:00 03/06/25 21:40 50 MG Nifedipine 60 mg DAILY PO 03/05/25 10:00 03/05/25 10:59 60 MG Potassium Chloride/Dextrose/ Sod Cl 1,000 ml @ 120 mls/hr Q8H20M IV 03/06/25 11:00 03/06/25 16:57 120 MLS/HR Ceftriaxone Sodium 50 ml @ 100 mls/hr DAILY@09 IV 03/07/25 09:00 Metronidazole 100 ml @ 100 mls/hr Q8HR IV 03/06/25 14:00 03/07/25 05:35 100 MLS/HR Hydromorphone HCl 1 mg Q3HPRN PRN IV 03/06/25 11:00 03/07/25 05:37 1 MG Ondansetron HCl 4 mg Q4HPRN PRN IV 03/06/25 11:00 03/07/25 05:42 4 MG Pantoprazole Sodium 40 mg DAILY IV 03/07/25 10:00 Laboratory Results Laboratory Tests 03/07/25 05:40 Chemistry Test 03/07/25 05:40 Albumin 3.6 g/dL (3.2-4.8) Calcium Level 8.9 mg/dL (8.7-10.4) Total Protein 6.0 g/dL (5.7-8.2) LFT Test 03/07/25 05:40 Alanine Aminotransferase (ALT) 22 U/L (7-40) Alkaline Phosphatase 62 U/L (46-116) Aspartate Amino Transferase (AST) 18 U/L (13-40) Total Bilirubin 0.3 mg/dL (0.2-1.0) Urinalysis Test 03/03/25 15:20 Urine Color Light-yellow (Yellow) Urine Clarity Turbid (Clear) H Urine pH 6.0 (5.0-9.0) Urine Specific [place] 1.017 (1.001-1.035) Urine Protein Negative (Negative) Urine Ketones Negative (Negative) Urine Blood Negative /uL (Negative) Urine Nitrite Negative (Negative) Urine Bilirubin Negative (Negative) Urine Urobilinogen Normal mg/dL (Negative) Urine Leukocyte Esterase 1+ /uL (Negative) Urine RBC 3 /hpf (0 - 4) Urine Microscopic WBC 5 /HPF (0-5) Urine Squamous Epithelial Cells Mod /hpf (<5) Urine Bacteria Few /hpf (None Seen) H Urine Glucose Normal mg/dL (Normal) Microbiology Microbiology Date/Time Source Procedure Growth Status 03/05/25 13:57 Blood Blood Culture - Preliminary NO GROWTH AFTER 24 HOURS OF INCUBATION. Resulted 03/03/25 15:20 Voided Urine Urine Culture - Final Complete Labs and/or images reviewed: Labs reviewed by me, Image(s) reviewed by me Assessment/Plan Assessment/Plan Acute abdominal pain History of umbilical hernia repair with mesh in [place] August 2024 History of liposuction one week ago at [place] Possible anterior abdominal wall infection following liposuction or periumbilical hernia mesh infection; Status post umbilical hernia repair with removal of infected mesh by Dr. Emerson on 03/06/2025 with the following findings: * Extensive inflammatory changes due to recent liposuction. * Incarcerated umbilical hernia. * Infected mesh from previous hernia repair. Acute urinary tract infection: Rocephin Umbilical hernia Diabetes Hypertension Time Spent 50 minutes Patient is full code Advanced care planning time 20 minutes Patient's has [facility], advised her to changed to [facility]. Plan discussed with: Patient My Orders Orders - LEÓN BAUGH MD Procedure Category Date Status Time Electrocardigram EKG 03/06/25 Logged 20:15 Date of Service: Mar 07, 2025 Billing Provider: LEÓN BAUGH MD Common Visit Codes: [id number] INP/OBS CARE(HIGH) LEÓN BAUGH MD Mar 07, 2025 10:45
[2025-03-07] MEDS: cefTRIAXone 1GM/50ML D5W 50 ML IV SCH (11:41)
[2025-03-07] MEDS: PANTOPRAZOLE 40 MG/10 ML VIAL INJ IV SCH (11:42)
[2025-03-07 12:30] VITALS: BP 140/84; PULSE 85; RESP 18; TEMP 97.6; O2SAT 98
[2025-03-07 17:08] VITALS: BP 115/54; PULSE 85; RESP 16; TEMP 97.8; O2SAT 95
[2025-03-07 21:00] VITALS: BP 115/74; PULSE 92; RESP 17; TEMP 98.2; O2SAT 98
[2025-03-08 01:00] VITALS: BP 104/60; PULSE 95; RESP 19; TEMP 98.5; O2SAT 98
[2025-03-08 05:00] VITALS: BP 121/68; PULSE 75; RESP 18; TEMP 97.4; O2SAT 95
[2025-03-08 07:14] LABS: Hematocrit 33.5 % (36.0-46.0); Hemoglobin 11.2 g/dL (12.2-16.2); Mean Corpuscular Hemoglobin 27.7 pg (28.0-32.0); Mean Corpuscular Volume 82.6 fL (80.0-100.0); Nucleated Red Blood Cells % 0.1 %
[2025-03-08 07:20] LABS: Alanine Aminotransferase 21 U/L (7-40); Albumin 3.6 g/dL (3.2-4.8); Alkaline Phosphatase 62 U/L (46-116); Anion Gap 9 (5-15); BUN/Creatinine Ratio 7.4 (10.0-20.0); Blood Urea Nitrogen 8 mg/dL (9-23); Calcium 8.4 mg/dL (8.7-10.4); Carbon Dioxide 26 mmol/L (20-31); Chloride 107 mmol/L (98-107); Glucose 103 mg/dL (74-106); Potassium 3.5 mmol/L (3.5-5.1); Sodium 142 mmol/L (136-145); Total Protein 5.9 g/dL (5.7-8.2)
[2025-03-08 07:21] LABS: Bilirubin, Total 0.3 mg/dL (0.2-1.0)
[2025-03-08 08:30] VITALS: BP 114/76; PULSE 87; RESP 14; TEMP 98.2; O2SAT 96
--- NOTE | 2025-03-08 08:58 | DVHPN2 ---
Subjective Date Seen: Mar 08, 2025 Post op day Post op day: 1 Patient reports: No new complaints, Feels better Nursing reports: No new complaints General: Normal HNT: Normal Cardiovascular: Normal Respiratory: Normal Gastrointestinal: Abdominal Pain Genitourinary: Normal Musculoskeletal: Normal Neurological: Normal Objective Vitals Vital Sign Date Time Temp Pulse Resp B/P (MAP) Pulse Ox O2 Delivery O2 Flow Rate FiO2 03/08/25 06:23 77 16 129/71 03/08/25 05:00 97.4 95 97.4 03/07/25 20:15 Room Air* 0 21 Total Intake and Output 03/07/25 03/07/25 03/08/25 15:00 23:00 07:00 Intake Total 100 ml 900 ml 1150 ml Balance 100 ml 900 ml 1150 ml Medications Current Medications Medications Dose Ordered Sig/Tavo Route Start Time Stop Time Status Last Admin Dose Admin Diagnostic Test (Pha) 1 strip ACHS 03/03/25 22:00 03/08/25 05:53 1 STRIP Insulin Human Regular ACHS SC 03/03/25 22:00 Dextrose 50 ml UD PRN IV 03/03/25 18:45 Sodium Chloride 10 ml Q8HR IV 03/03/25 22:00 03/08/25 05:53 10 ML Acetaminophen/ Hydrocodone Bitart 1 tab Q4HP PRN PO 03/03/25 18:45 03/08/25 02:11 1 TAB Docusate Sodium 100 mg BIDPRN PRN PO 03/03/25 18:45 03/07/25 21:19 100 MG Acetaminophen 650 mg Q6HP PRN PO 03/03/25 18:45 Nitroglycerin 0.4 mg Q5MINP PRN SL 03/03/25 19:15 Morphine Sulfate 2 mg Q30M PRN IV 03/03/25 19:15 03/05/25 04:25 2 MG Diphenhydramine HCl 25 mg Q8HP PRN PO 03/04/25 14:30 03/05/25 06:37 25 MG Hydralazine HCl 50 mg Q12HR PO 03/04/25 22:00 03/07/25 22:49 50 MG Nifedipine 60 mg DAILY PO 03/05/25 10:00 03/07/25 11:42 60 MG Potassium Chloride/Dextrose/ Sod Cl 1,000 ml @ 120 mls/hr Q8H20M IV 03/06/25 11:00 03/08/25 06:32 120 MLS/HR Ceftriaxone Sodium 50 ml @ 100 mls/hr DAILY@09 IV 03/07/25 09:00 03/07/25 11:41 100 MLS/HR Metronidazole 100 ml @ 100 mls/hr Q8HR IV 03/06/25 14:00 03/08/25 05:53 100 MLS/HR Hydromorphone HCl 1 mg Q3HPRN PRN IV 03/06/25 11:00 03/08/25 05:53 1 MG Ondansetron HCl 4 mg Q4HPRN PRN IV 03/06/25 11:00 03/08/25 05:54 4 MG Pantoprazole Sodium 40 mg DAILY IV 03/07/25 10:00 03/07/25 11:42 40 MG General: Normal, Well developed, Obese Head/Eyes: Normal ENT: Normal Neck: Normal Lungs: Normal Cardiovascular: Normal, Regular rate and rhythm Abdominal: Other (tenderness to lower abdomen ) Extremities: Normal Skin: Normal Labs and Microbiology Laboratory Tests 03/08/25 06:28 Test 03/08/25 06:28 Range/Units Serum Glucose 103 74-106 mg/dL Ass/Plan Labs and/or images reviewed: Labs reviewed by me, Image(s) reviewed by me Problem List 03/07/25 LESS TENDER THAN BEFORE OPERATION, OPERATIVE FINDINGS DISCUSSED WITH PATIENT, WOUND CLEAN AND WELL APPROXIMATED, DRAINAGE NON PURULENT. WILL ADVANCE DIET AND AQMBULATION, POSSIBLY DC IN AM Assessment/Plan 03/08/25 patient feels much better today than yesterday some pain in lower abdomen slightly tender to lower abdomen wounds clean dry and intact denies nausea or vomiting tolerating diet DEYANIRA drain serous fluid Plan: continue current treatment Prognosis: Good Plan discussed with patient, Dr. Emerson Visit Coding Surgery Date of Service if different f: Mar 08, 2025 Billing Provider: DELISA EMERSON MD Surgery Visit Codes: [id number] INP/OBS CARE(HIGH) KENDAL GUERRERO NP Mar 08, 2025 08:58
--- NOTE | 2025-03-08 11:35 | DVHPN2 ---
Reviewed: Care Plan, H&P, Labs, Medications, Previous Orders, Radiology Changes from previous H/P or p: No Changes Eyes: No Pain, No Vision change, No Conjunctivae inflammation, No Eyelid inflammation, No Other, No Redness ENT: No Ear pain, No Ear discharge, No Nose pain, No Nose discharge, No Nose congestion, No Mouth pain, No Mouth swelling, No Throat pain, No Throat swelling, No Other Cardiovascular: No Chest Pain, No Palpitations, No Orthopnea, No Paroxysmal Noc. Dyspnea, No Edema, No Lt Headedness, No Other Respiratory: No Cough, No Dry, No Shortness of breath, No SOB with excertion, No Wheezing, No Hemoptysis, No Pleuritic Pain, No Sputum, No Other Gastrointestinal: No Nausea, No Vomiting; Abdominal Pain; No Diarrhea, No Constipation, No Melena, No Hematochezia, No Other Genitourinary: No Dysuria, No Frequency, No Incontinence, No Hematuria, No Retention, No Other Musculoskeletal: No other, No neck pain, No shoulder pain, No arm pain, No back pain, No hand pain, No leg pain, No foot pain Skin: No Rash, No Lesions, No Jaundice, No Bruising, No Other Objective Vitals Vital Signs Date Time Temp Pulse Resp B/P (MAP) Pulse Ox O2 Delivery O2 Flow Rate FiO2 03/08/25 09:27 120/79 03/08/25 08:00 Room Air* 0 21 03/08/25 06:23 77 16 03/08/25 05:00 97.4 95 97.4 Intake/Output Intake and Output 03/08/25 07:00 Intake Total 2150 ml Balance 2150 ml Intake Oral 200 ml IV Total 1950 ml # Voids 6 Medications Current Medications Medications Dose Ordered Sig/Tavo Route Start Time Stop Time Status Last Admin Dose Admin Diagnostic Test (Pha) 1 strip ACHS 03/03/25 22:00 03/08/25 11:18 1 STRIP Insulin Human Regular ACHS SC 03/03/25 22:00 Dextrose 50 ml UD PRN IV 03/03/25 18:45 Sodium Chloride 10 ml Q8HR IV 03/03/25 22:00 03/08/25 05:53 10 ML Acetaminophen/ Hydrocodone Bitart 1 tab Q4HP PRN PO 03/03/25 18:45 03/08/25 09:27 1 TAB Docusate Sodium 100 mg BIDPRN PRN PO 03/03/25 18:45 03/07/25 21:19 100 MG Acetaminophen 650 mg Q6HP PRN PO 03/03/25 18:45 Nitroglycerin 0.4 mg Q5MINP PRN SL 03/03/25 19:15 Morphine Sulfate 2 mg Q30M PRN IV 03/03/25 19:15 03/05/25 04:25 2 MG Diphenhydramine HCl 25 mg Q8HP PRN PO 03/04/25 14:30 03/05/25 06:37 25 MG Hydralazine HCl 50 mg Q12HR PO 03/04/25 22:00 03/08/25 09:27 50 MG Nifedipine 60 mg DAILY PO 03/05/25 10:00 03/08/25 09:27 60 MG Potassium Chloride/Dextrose/ Sod Cl 1,000 ml @ 120 mls/hr Q8H20M IV 03/06/25 11:00 03/08/25 06:32 120 MLS/HR Ceftriaxone Sodium 50 ml @ 100 mls/hr DAILY@09 IV 03/07/25 09:00 03/08/25 09:26 100 MLS/HR Metronidazole 100 ml @ 100 mls/hr Q8HR IV 03/06/25 14:00 03/08/25 05:53 100 MLS/HR Hydromorphone HCl 1 mg Q3HPRN PRN IV 03/06/25 11:00 03/08/25 05:53 1 MG Ondansetron HCl 4 mg Q4HPRN PRN IV 03/06/25 11:00 03/08/25 05:54 4 MG Pantoprazole Sodium 40 mg DAILY IV 03/07/25 10:00 03/08/25 09:26 40 MG Laboratory Results Laboratory Tests 03/08/25 06:28 Chemistry Test 03/08/25 06:28 Albumin 3.6 g/dL (3.2-4.8) Calcium Level 8.4 mg/dL (8.7-10.4) L Total Protein 5.9 g/dL (5.7-8.2) LFT Test 03/08/25 06:28 Alanine Aminotransferase (ALT) 21 U/L (7-40) Alkaline Phosphatase 62 U/L (46-116) Aspartate Amino Transferase (AST) 16 U/L (13-40) Total Bilirubin 0.3 mg/dL (0.2-1.0) Urinalysis Test 03/03/25 15:20 Urine Color Light-yellow (Yellow) Urine Clarity Turbid (Clear) H Urine pH 6.0 (5.0-9.0) Urine Specific [place] 1.017 (1.001-1.035) Urine Protein Negative (Negative) Urine Ketones Negative (Negative) Urine Blood Negative /uL (Negative) Urine Nitrite Negative (Negative) Urine Bilirubin Negative (Negative) Urine Urobilinogen Normal mg/dL (Negative) Urine Leukocyte Esterase 1+ /uL (Negative) Urine RBC 3 /hpf (0 - 4) Urine Microscopic WBC 5 /HPF (0-5) Urine Squamous Epithelial Cells Mod /hpf (<5) Urine Bacteria Few /hpf (None Seen) H Urine Glucose Normal mg/dL (Normal) Microbiology Microbiology Date/Time Source Procedure Growth Status 03/05/25 13:57 Blood Blood Culture - Preliminary NO GROWTH AFTER 48 HOURS OF INCUBATION. Resulted 03/03/25 15:20 Voided Urine Urine Culture - Final Complete Labs and/or images reviewed: Labs reviewed by me, Image(s) reviewed by me Assessment/Plan Assessment/Plan Acute abdominal pain History of umbilical hernia repair with mesh in [place] August 2024 History of liposuction one week ago at [place] Possible anterior abdominal wall infection following liposuction or periumbilical hernia mesh infection; Status post umbilical hernia repair with removal of infected mesh by Dr. Emerson on 03/06/2025 with the following findings: * Extensive inflammatory changes due to recent liposuction. * Incarcerated umbilical hernia. * Infected mesh from previous hernia repair. Acute urinary tract infection: Rocephin Umbilical hernia Diabetes Hypertension Time Spent 50 minutes Patient is full code Advanced care planning time 20 minutes Patient's has [facility], advised her to changed to [facility]. Plan discussed with: Patient Date of Service: Mar 08, 2025 Billing Provider: LEÓN BAUGH MD Common Visit Codes: [id number] INP/OBS CARE(HIGH) LEÓN BAUGH MD Mar 08, 2025 11:35
[2025-03-08] MEDS: ACETAMINOPHEN 325 MG TAB PO PRN (12:06)
[2025-03-08 12:30] VITALS: BP 102/48; PULSE 95; RESP 18; TEMP 98.4; O2SAT 99
[2025-03-08 16:30] VITALS: BP 86/57; PULSE 77; RESP 14; TEMP 97.4; O2SAT 98
[2025-03-08 21:00] VITALS: BP 108/60; PULSE 88; RESP 16; TEMP 98.1; O2SAT 95
[2025-03-09] VITALS (7 sets, daily range): BP systolic 95–131; BP diastolic 53–76; PULSE 68–79; RESP 16–20; TEMP 97.2–98; O2SAT 93–99
--- NOTE | 2025-03-09 07:37 | ECG ---
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
--- NOTE | 2025-03-09 10:06 | DVHPN2 ---
Progress Note Date Seen: Mar 09, 2025 Medical Necessity Reason Pt with a Central, PICC or Fol: No Objective vital signs Vital Sign Date Time Temp Pulse Resp B/P (MAP) Pulse Ox O2 Delivery O2 Flow Rate FiO2 03/09/25 09:38 130/71 03/09/25 09:00 98.0 69 18 99 98.0 03/08/25 20:20 Room Air* 0 21 Total Intake and Output 03/08/25 03/08/25 03/09/25 15:00 23:00 07:00 Intake Total 50 ml 2100 ml 0 ml Balance 50 ml 2100 ml 0 ml medications Current Medications Medications Dose Ordered Sig/Tavo Route Start Time Stop Time Status Last Admin Dose Admin Diagnostic Test (Pha) 1 strip ACHS 03/03/25 22:00 03/09/25 06:42 1 STRIP Insulin Human Regular ACHS SC 03/03/25 22:00 Dextrose 50 ml UD PRN IV 03/03/25 18:45 Sodium Chloride 10 ml Q8HR IV 03/03/25 22:00 03/09/25 06:00 10 ML Acetaminophen/ Hydrocodone Bitart 1 tab Q4HP PRN PO 03/03/25 18:45 03/09/25 04:33 1 TAB Docusate Sodium 100 mg BIDPRN PRN PO 03/03/25 18:45 03/09/25 06:23 100 MG Acetaminophen 650 mg Q6HP PRN PO 03/03/25 18:45 03/09/25 06:23 650 MG Nitroglycerin 0.4 mg Q5MINP PRN SL 03/03/25 19:15 Morphine Sulfate 2 mg Q30M PRN IV 03/03/25 19:15 03/05/25 04:25 2 MG Diphenhydramine HCl 25 mg Q8HP PRN PO 03/04/25 14:30 03/05/25 06:37 25 MG Hydralazine HCl 50 mg Q12HR PO 03/04/25 22:00 03/09/25 09:38 50 MG Nifedipine 60 mg DAILY PO 03/05/25 10:00 03/09/25 09:38 60 MG Potassium Chloride/Dextrose/ Sod Cl 1,000 ml @ 120 mls/hr Q8H20M IV 03/06/25 11:00 03/08/25 06:32 120 MLS/HR Ceftriaxone Sodium 50 ml @ 100 mls/hr DAILY@09 IV 03/07/25 09:00 03/09/25 09:37 100 MLS/HR Metronidazole 100 ml @ 100 mls/hr Q8HR IV 03/06/25 14:00 03/09/25 06:23 100 MLS/HR Hydromorphone HCl 1 mg Q3HPRN PRN IV 03/06/25 11:00 03/08/25 05:53 1 MG Ondansetron HCl 4 mg Q4HPRN PRN IV 03/06/25 11:00 03/08/25 05:54 4 MG Pantoprazole Sodium 40 mg DAILY IV 03/07/25 10:00 03/09/25 09:37 40 MG laboratory and microbiology Laboratory Tests 03/08/25 06:28 Test 03/08/25 06:28 Range/Units Serum Glucose 103 74-106 mg/dL Problem List/Assessment/Plan Problem List/Assessment/Plan 03/07/25 LESS TENDER THAN BEFORE OPERATION, OPERATIVE FINDINGS DISCUSSED WITH PATIENT, WOUND CLEAN AND WELL APPROXIMATED, DRAINAGE NON PURULENT. WILL ADVANCE DIET AND AQMBULATION, POSSIBLY DC IN AM 03/09/25 doing well, less tender, wound clean and well approximated, drainage non purulent, no nausea, tolerating po, afebrile, needs to increase ambulation Plan discussed with: Patient Dietary Evaluation Review Comments: 1) Advance to [facility] 60gm GI soft diet as medically feasible 2) Refer [employer] for diabetes education 3) Monitor NPO status, lab values, weight trend, and I/O Expected Outcomes/Goals: To meet >75% estimated needs Fu 2-3 days DELISA EGAN MD Mar 09, 2025 10:06
--- NOTE | 2025-03-09 12:30 | DVHPN2 ---
Reviewed: Care Plan, H&P, Labs, Medications, Previous Orders, Radiology Changes from previous H/P or p: No Changes Eyes: No Pain, No Vision change, No Conjunctivae inflammation, No Eyelid inflammation, No Other, No Redness ENT: No Ear pain, No Ear discharge, No Nose pain, No Nose discharge, No Nose congestion, No Mouth pain, No Mouth swelling, No Throat pain, No Throat swelling, No Other Cardiovascular: No Chest Pain, No Palpitations, No Orthopnea, No Paroxysmal Noc. Dyspnea, No Edema, No Lt Headedness, No Other Respiratory: No Cough, No Dry, No Shortness of breath, No SOB with excertion, No Wheezing, No Hemoptysis, No Pleuritic Pain, No Sputum, No Other Gastrointestinal: No Nausea, No Vomiting; Abdominal Pain; No Diarrhea, No Constipation, No Melena, No Hematochezia, No Other Genitourinary: No Dysuria, No Frequency, No Incontinence, No Hematuria, No Retention, No Other Musculoskeletal: No other, No neck pain, No shoulder pain, No arm pain, No back pain, No hand pain, No leg pain, No foot pain Skin: No Rash, No Lesions, No Jaundice, No Bruising, No Other Objective Vitals Vital Signs Date Time Temp Pulse Resp B/P (MAP) Pulse Ox O2 Delivery O2 Flow Rate FiO2 03/09/25 09:38 130/71 03/09/25 09:00 98.0 69 18 99 98.0 03/08/25 20:20 Room Air* 0 21 Intake/Output Intake and Output 03/09/25 07:00 Intake Total 2150 ml Balance 2150 ml Intake Oral 2000 ml IV Total 150 ml # Voids 5 Medications Current Medications Medications Dose Ordered Sig/Tavo Route Start Time Stop Time Status Last Admin Dose Admin Diagnostic Test (Pha) 1 strip ACHS 03/03/25 22:00 03/09/25 11:30 1 STRIP Insulin Human Regular ACHS SC 03/03/25 22:00 Dextrose 50 ml UD PRN IV 03/03/25 18:45 Sodium Chloride 10 ml Q8HR IV 03/03/25 22:00 03/09/25 06:00 10 ML Acetaminophen/ Hydrocodone Bitart 1 tab Q4HP PRN PO 03/03/25 18:45 03/09/25 10:07 1 TAB Docusate Sodium 100 mg BIDPRN PRN PO 03/03/25 18:45 03/09/25 06:23 100 MG Acetaminophen 650 mg Q6HP PRN PO 03/03/25 18:45 03/09/25 06:23 650 MG Nitroglycerin 0.4 mg Q5MINP PRN SL 03/03/25 19:15 Morphine Sulfate 2 mg Q30M PRN IV 03/03/25 19:15 03/05/25 04:25 2 MG Diphenhydramine HCl 25 mg Q8HP PRN PO 03/04/25 14:30 03/05/25 06:37 25 MG Hydralazine HCl 50 mg Q12HR PO 03/04/25 22:00 03/09/25 09:38 50 MG Nifedipine 60 mg DAILY PO 03/05/25 10:00 03/09/25 09:38 60 MG Potassium Chloride/Dextrose/ Sod Cl 1,000 ml @ 120 mls/hr Q8H20M IV 03/06/25 11:00 03/08/25 06:32 120 MLS/HR Ceftriaxone Sodium 50 ml @ 100 mls/hr DAILY@09 IV 03/07/25 09:00 03/09/25 09:37 100 MLS/HR Metronidazole 100 ml @ 100 mls/hr Q8HR IV 03/06/25 14:00 03/09/25 06:23 100 MLS/HR Hydromorphone HCl 1 mg Q3HPRN PRN IV 03/06/25 11:00 03/08/25 05:53 1 MG Ondansetron HCl 4 mg Q4HPRN PRN IV 03/06/25 11:00 03/08/25 05:54 4 MG Pantoprazole Sodium 40 mg DAILY IV 03/07/25 10:00 03/09/25 09:37 40 MG Laboratory Results Laboratory Tests 03/08/25 06:28 Urinalysis Test 03/03/25 15:20 Urine Color Light-yellow (Yellow) Urine Clarity Turbid (Clear) H Urine pH 6.0 (5.0-9.0) Urine Specific [place] 1.017 (1.001-1.035) Urine Protein Negative (Negative) Urine Ketones Negative (Negative) Urine Blood Negative /uL (Negative) Urine Nitrite Negative (Negative) Urine Bilirubin Negative (Negative) Urine Urobilinogen Normal mg/dL (Negative) Urine Leukocyte Esterase 1+ /uL (Negative) Urine RBC 3 /hpf (0 - 4) Urine Microscopic WBC 5 /HPF (0-5) Urine Squamous Epithelial Cells Mod /hpf (<5) Urine Bacteria Few /hpf (None Seen) H Urine Glucose Normal mg/dL (Normal) Microbiology Microbiology Date/Time Source Procedure Growth Status 03/05/25 13:57 Blood Blood Culture - Preliminary NO GROWTH AFTER 72 HOURS OF INCUBATION. Resulted 03/03/25 15:20 Voided Urine Urine Culture - Final Complete Labs and/or images reviewed: Labs reviewed by me, Image(s) reviewed by me Assessment/Plan Assessment/Plan Acute abdominal pain History of umbilical hernia repair with mesh in [place] August 2024 History of liposuction one week ago at [place] Possible anterior abdominal wall infection following liposuction or periumbilical hernia mesh infection; Status post umbilical hernia repair with removal of infected mesh by Dr. Emerson on 03/06/2025 with the following findings: * Extensive inflammatory changes due to recent liposuction. * Incarcerated umbilical hernia. * Infected mesh from previous hernia repair. Acute urinary tract infection: Rocephin Umbilical hernia Diabetes Hypertension Time Spent 50 minutes Patient is full code Advanced care planning time 20 minutes Patient's has [facility], advised her to changed to [facility]. RN Leticia at bedside Complaining of left lower quadrant abdominal pain; CT abdomen pelvis without contrast ordered per patient's request Plan discussed with: Patient Date of Service: Mar 09, 2025 Billing Provider: LEÓN BAUGH MD Common Visit Codes: [id number] INP/OBS CARE(HIGH) LEÓN BAUGH MD Mar 09, 2025 12:30
--- NOTE | 2025-03-09 13:23 | DVH ---
EXAM: CT CT AB PEL WO CON-NO ORAL OR IV INDICATION: LLQ Pain TECHNIQUE: Volumetric multidetector CT images of the abdomen and pelvis were obtained without contras t. All CT scans at this facility use dose modulation, iterative reconstruction, and/or weight based d osing when appropriate to reduce radiation dose to as low as reasonably achievable. COMPARISON: CT CT AB PEL WO CON-NO ORAL OR IV on DOS: 03/03/25 FINDINGS: [LOWER CHEST]: The partially visualized lung bases are clear without a pleural effusion. The cardiac size is normal without pericardial effusion. [LIVER]: Hepatomegaly. Question hepatic steatosis. [GALLBLADDER AND BILIARY TREE]: No cholelithiasis. [SPLEEN]: Unremarkable. [PANCREAS]: Unremarkable. [ADRENAL GLANDS]: Unremarkable [KIDNEYS]: No hydronephrosis. No nephroureterolithiasis. [BLADDER]: Unremarkable for the degree distention. [REPRODUCTIVE ORGANS]: Unremarkable. [BOWEL/MESENTERY]: Trace possible sliding hiatal hernia [id number] stool burden. Sigmoid diver ticulosis. [ASCITES]: Absent [LYMPHADENOPATHY]: No pathologically enlarged lymph nodes by CT size criteria [VASCULATURE]: No aneurysmal dilatation. [ABDOMINAL WALL]: Significant anterior abdominal wall inflammatory stranding with skin thickening and overlying postsurgical changes correlate with surgical history. Imaging findings are minimally less conspicuous than prior examination. Decreased soft tissue emphysema along the upper anterior abdomina l wall. Overlying surgical drain. [MUSCULOSKELETAL]: No acute fracture or aggressive focal osseous lesion. IMPRESSION: 1. Minimal improvement status post surgical drain placement along the anterior abdominal wall. 2. Persistent prominent areas of broad-based presumed fluid collections with superimposed areas of po ssible fat necrosis with the largest extent in width measuring up to 20 cm along the right lateral ab dominal wall.
[2025-03-10] VITALS (7 sets, daily range): BP systolic 100–127; BP diastolic 59–73; PULSE 64–80; RESP 17–20; TEMP 97.4–98.1; O2SAT 97–99
--- NOTE | 2025-03-10 11:21 | DVHPN2 ---
Reviewed: Care Plan, H&P, Labs, Medications, Previous Orders, Radiology Changes from previous H/P or p: No Changes Eyes: No Pain, No Vision change, No Conjunctivae inflammation, No Eyelid inflammation, No Other, No Redness ENT: No Ear pain, No Ear discharge, No Nose pain, No Nose discharge, No Nose congestion, No Mouth pain, No Mouth swelling, No Throat pain, No Throat swelling, No Other Cardiovascular: No Chest Pain, No Palpitations, No Orthopnea, No Paroxysmal Noc. Dyspnea, No Edema, No Lt Headedness, No Other Respiratory: No Cough, No Dry, No Shortness of breath, No SOB with excertion, No Wheezing, No Hemoptysis, No Pleuritic Pain, No Sputum, No Other Gastrointestinal: No Nausea, No Vomiting; Abdominal Pain; No Diarrhea, No Constipation, No Melena, No Hematochezia, No Other Genitourinary: No Dysuria, No Frequency, No Incontinence, No Hematuria, No Retention, No Other Musculoskeletal: No other, No neck pain, No shoulder pain, No arm pain, No back pain, No hand pain, No leg pain, No foot pain Skin: No Rash, No Lesions, No Jaundice, No Bruising, No Other Objective Vitals Vital Signs Date Time Temp Pulse Resp B/P (MAP) Pulse Ox O2 Delivery O2 Flow Rate FiO2 03/10/25 10:27 118/78 03/10/25 09:00 98.0 68 18 97 98.0 03/09/25 20:00 Room Air* 0 21 Intake/Output Intake and Output 03/10/25 07:00 Intake Total 2730 ml Output Total 1200 ml Balance 1530 ml Intake Oral 1200 ml IV Total 1530 ml Output Urine Total 1200 ml # Voids 5 Medications Current Medications Medications Dose Ordered Sig/Tavo Route Start Time Stop Time Status Last Admin Dose Admin Diagnostic Test (Pha) 1 strip ACHS 03/03/25 22:00 03/10/25 06:30 1 STRIP Insulin Human Regular ACHS SC 03/03/25 22:00 Dextrose 50 ml UD PRN IV 03/03/25 18:45 Sodium Chloride 10 ml Q8HR IV 03/03/25 22:00 03/10/25 06:03 10 ML Acetaminophen/ Hydrocodone Bitart 1 tab Q4HP PRN PO 03/03/25 18:45 03/10/25 10:44 1 TAB Docusate Sodium 100 mg BIDPRN PRN PO 03/03/25 18:45 03/09/25 06:23 100 MG Acetaminophen 650 mg Q6HP PRN PO 03/03/25 18:45 03/10/25 03:24 650 MG Nitroglycerin 0.4 mg Q5MINP PRN SL 03/03/25 19:15 Morphine Sulfate 2 mg Q30M PRN IV 03/03/25 19:15 03/05/25 04:25 2 MG Diphenhydramine HCl 25 mg Q8HP PRN PO 03/04/25 14:30 03/05/25 06:37 25 MG Hydralazine HCl 50 mg Q12HR PO 03/04/25 22:00 03/10/25 10:27 50 MG Nifedipine 60 mg DAILY PO 03/05/25 10:00 03/10/25 10:27 60 MG Potassium Chloride/Dextrose/ Sod Cl 1,000 ml @ 120 mls/hr Q8H20M IV 03/06/25 11:00 03/10/25 10:44 120 MLS/HR Ceftriaxone Sodium 50 ml @ 100 mls/hr DAILY@09 IV 03/07/25 09:00 03/10/25 08:33 100 MLS/HR Metronidazole 100 ml @ 100 mls/hr Q8HR IV 03/06/25 14:00 03/10/25 06:22 100 MLS/HR Hydromorphone HCl 1 mg Q3HPRN PRN IV 03/06/25 11:00 03/08/25 05:53 1 MG Ondansetron HCl 4 mg Q4HPRN PRN IV 03/06/25 11:00 03/08/25 05:54 4 MG Pantoprazole Sodium 40 mg DAILY IV 03/07/25 10:00 03/10/25 10:27 40 MG Laboratory Results Laboratory Tests 03/08/25 06:28 Urinalysis Test 03/03/25 15:20 Urine Color Light-yellow (Yellow) Urine Clarity Turbid (Clear) H Urine pH 6.0 (5.0-9.0) Urine Specific [place] 1.017 (1.001-1.035) Urine Protein Negative (Negative) Urine Ketones Negative (Negative) Urine Blood Negative /uL (Negative) Urine Nitrite Negative (Negative) Urine Bilirubin Negative (Negative) Urine Urobilinogen Normal mg/dL (Negative) Urine Leukocyte Esterase 1+ /uL (Negative) Urine RBC 3 /hpf (0 - 4) Urine Microscopic WBC 5 /HPF (0-5) Urine Squamous Epithelial Cells Mod /hpf (<5) Urine Bacteria Few /hpf (None Seen) H Urine Glucose Normal mg/dL (Normal) Microbiology Microbiology Date/Time Source Procedure Growth Status 03/05/25 13:57 Blood Blood Culture - Preliminary NO GROWTH AFTER 72 HOURS OF INCUBATION. Resulted 03/03/25 15:20 Voided Urine Urine Culture - Final Complete Labs and/or images reviewed: Labs reviewed by me, Image(s) reviewed by me Assessment/Plan Assessment/Plan Acute abdominal pain History of umbilical hernia repair with mesh in [place] August 2024 History of liposuction one week ago at [place] Possible anterior abdominal wall infection following liposuction or periumbilical hernia mesh infection; Status post umbilical hernia repair with removal of infected mesh by Dr. Emerson on 03/06/2025 with the following findings: * Extensive inflammatory changes due to recent liposuction. * Incarcerated umbilical hernia. * Infected mesh from previous hernia repair. Acute urinary tract infection: Rocephin Umbilical hernia Diabetes Hypertension Time Spent 50 minutes Patient is full code Advanced care planning time [address] [facility], advised her to changed to [facility]. SRUTHI Kelly at bedside Repeat CT abdomen pelvis without contrast shows diffuse anterior abdominal wall infection no localization of pus Physical therapy ordered Plan discussed with: Patient My Orders Orders - LEÓN BAUGH MD Procedure Category Date Status Time Ct Ab Pel Wo Con-No CT 03/09/25 Resulted Oral Or Iv 12:29 Date of Service: Mar 10, 2025 Billing Provider: LEÓN BAUGH MD Common Visit Codes: [id number] INP/OBS CARE(HIGH) LEÓN BAUGH MD Mar 10, 2025 11:21
--- NOTE | 2025-03-10 13:43 | DVHPN2 ---
Progress Note Date Seen: Mar 10, 2025 Medical Necessity Reason Pt with a Central, PICC or Fol: No Objective vital signs Vital Sign Date Time Temp Pulse Resp B/P (MAP) Pulse Ox O2 Delivery O2 Flow Rate FiO2 03/10/25 13:00 98.0 64 20 100/64 (76) 99 98.0 03/09/25 20:00 Room Air* 0 21 Total Intake and Output 03/09/25 03/09/25 03/10/25 15:00 23:00 07:00 Intake Total 150 ml 2180 ml 400 ml Output Total 1200 ml Balance 150 ml 980 ml 400 ml medications Current Medications Medications Dose Ordered Sig/Tavo Route Start Time Stop Time Status Last Admin Dose Admin Diagnostic Test (Pha) 1 strip ACHS 03/03/25 22:00 03/10/25 11:22 1 STRIP Insulin Human Regular ACHS SC 03/03/25 22:00 Dextrose 50 ml UD PRN IV 03/03/25 18:45 Sodium Chloride 10 ml Q8HR IV 03/03/25 22:00 03/10/25 06:03 10 ML Acetaminophen/ Hydrocodone Bitart 1 tab Q4HP PRN PO 03/03/25 18:45 03/10/25 10:44 1 TAB Docusate Sodium 100 mg BIDPRN PRN PO 03/03/25 18:45 03/09/25 06:23 100 MG Acetaminophen 650 mg Q6HP PRN PO 03/03/25 18:45 03/10/25 03:24 650 MG Nitroglycerin 0.4 mg Q5MINP PRN SL 03/03/25 19:15 Morphine Sulfate 2 mg Q30M PRN IV 03/03/25 19:15 03/05/25 04:25 2 MG Diphenhydramine HCl 25 mg Q8HP PRN PO 03/04/25 14:30 03/05/25 06:37 25 MG Hydralazine HCl 50 mg Q12HR PO 03/04/25 22:00 03/10/25 10:27 50 MG Nifedipine 60 mg DAILY PO 03/05/25 10:00 03/10/25 10:27 60 MG Potassium Chloride/Dextrose/ Sod Cl 1,000 ml @ 120 mls/hr Q8H20M IV 03/06/25 11:00 03/10/25 10:44 120 MLS/HR Ceftriaxone Sodium 50 ml @ 100 mls/hr DAILY@09 IV 03/07/25 09:00 03/10/25 08:33 100 MLS/HR Metronidazole 100 ml @ 100 mls/hr Q8HR IV 03/06/25 14:00 03/10/25 06:22 100 MLS/HR Hydromorphone HCl 1 mg Q3HPRN PRN IV 03/06/25 11:00 03/08/25 05:53 1 MG Ondansetron HCl 4 mg Q4HPRN PRN IV 03/06/25 11:00 03/08/25 05:54 4 MG Pantoprazole Sodium 40 mg DAILY IV 03/07/25 10:00 03/10/25 10:27 40 MG laboratory and microbiology Laboratory Tests 03/08/25 06:28 Test 03/08/25 06:28 Range/Units Serum Glucose 103 74-106 mg/dL Problem List/Assessment/Plan Problem List/Assessment/Plan 03/07/25 LESS TENDER THAN BEFORE OPERATION, OPERATIVE FINDINGS DISCUSSED WITH PATIENT, WOUND CLEAN AND WELL APPROXIMATED, DRAINAGE NON PURULENT. WILL ADVANCE DIET AND AQMBULATION, POSSIBLY DC IN AM 03/09/25 doing well, less tender, wound clean and well approximated, drainage non purulent, no nausea, tolerating po, afebrile, needs to increase ambulation 03/10/25 doing well, ambulated, passing flatus, wound ok, she can be discharged tomorrow with po antibiotics, to return to see me in 10 days Plan discussed with: Patient Dietary Evaluation Review Comments: 1) Advance to [facility] GI soft diet as medically feasible 2) Refer Boil Off Worker for diabetes education 3) Monitor NPO status, lab values, weight trend, and I/O Expected Outcomes/Goals: To meet >75% estimated needs Fu 2-3 days DELISA EGAN MD Mar 10, 2025 13:43
[2025-03-10 18:24] LABS: Hematocrit 38.2 % (36.0-46.0); Hemoglobin 12.6 g/dL (12.2-16.2); Mean Corpuscular Hemoglobin 27.4 pg (28.0-32.0); Mean Corpuscular Volume 83.0 fL (80.0-100.0); Nucleated Red Blood Cells % 0.0 %
[2025-03-10 18:38] LABS: Alanine Aminotransferase 22 U/L (7-40); Albumin 4.2 g/dL (3.2-4.8); Alkaline Phosphatase 76 U/L (46-116); Anion Gap 10 (5-15); BUN/Creatinine Ratio 6.3 (10.0-20.0); Calcium 8.8 mg/dL (8.7-10.4); Carbon Dioxide 24 mmol/L (20-31); Chloride 106 mmol/L (98-107); Glucose 103 mg/dL (74-106); Sodium 140 mmol/L (136-145); Total Protein 7.2 g/dL (5.7-8.2)
[2025-03-10 18:39] LABS: Bilirubin, Total 0.2 mg/dL (0.2-1.0); Blood Urea Nitrogen 6 mg/dL (9-23); Potassium 3.5 mmol/L (3.5-5.1)
[2025-03-11 01:00] VITALS: BP 133/84; PULSE 72; RESP 20; TEMP 98.1; O2SAT 99
[2025-03-11 05:00] VITALS: BP 119/87; PULSE 79; RESP 20; TEMP 97; O2SAT 100
[2025-03-11 09:00] VITALS: BP 121/72; PULSE 63; RESP 16; TEMP 98.1; O2SAT 99
--- NOTE | 2025-03-11 09:31 | DVHPN2 ---
Subjective Date Seen: Mar 11, 2025 Post op day Post op day: 4 Patient reports: No new complaints, Feels better Nursing reports: No new complaints General: Normal HNT: Normal Cardiovascular: Normal Respiratory: Normal Gastrointestinal: Normal Genitourinary: Normal Musculoskeletal: Normal Neurological: Normal Objective Vitals Vital Sign Date Time Temp Pulse Resp B/P (MAP) Pulse Ox O2 Delivery O2 Flow Rate FiO2 03/11/25 05:00 97.0 79 20 119/87 (98) 100 97.0 03/10/25 20:00 Room Air* 0 21 Total Intake and Output 03/10/25 03/10/25 03/11/25 15:00 23:00 07:00 Intake Total 1150 ml 1570 ml 600 ml Balance 1150 ml 1570 ml 600 ml Medications Current Medications Medications Dose Ordered Sig/Tavo Route Start Time Stop Time Status Last Admin Dose Admin Diagnostic Test (Pha) 1 strip ACHS 03/03/25 22:00 03/11/25 05:50 1 STRIP Insulin Human Regular ACHS SC 03/03/25 22:00 Dextrose 50 ml UD PRN IV 03/03/25 18:45 Sodium Chloride 10 ml Q8HR IV 03/03/25 22:00 03/11/25 05:06 10 ML Acetaminophen/ Hydrocodone Bitart 1 tab Q4HP PRN PO 03/03/25 18:45 03/11/25 05:20 1 TAB Docusate Sodium 100 mg BIDPRN PRN PO 03/03/25 18:45 03/09/25 06:23 100 MG Acetaminophen 650 mg Q6HP PRN PO 03/03/25 18:45 03/11/25 02:03 650 MG Nitroglycerin 0.4 mg Q5MINP PRN SL 03/03/25 19:15 Morphine Sulfate 2 mg Q30M PRN IV 03/03/25 19:15 03/05/25 04:25 2 MG Diphenhydramine HCl 25 mg Q8HP PRN PO 03/04/25 14:30 03/05/25 06:37 25 MG Hydralazine HCl 50 mg Q12HR PO 03/04/25 22:00 03/10/25 22:27 50 MG Nifedipine 60 mg DAILY PO 03/05/25 10:00 03/10/25 10:27 60 MG Potassium Chloride/Dextrose/ Sod Cl 1,000 ml @ 120 mls/hr Q8H20M IV 03/06/25 11:00 03/10/25 23:20 120 MLS/HR Ceftriaxone Sodium 50 ml @ 100 mls/hr DAILY@09 IV 03/07/25 09:00 03/10/25 08:33 100 MLS/HR Metronidazole 100 ml @ 100 mls/hr Q8HR IV 03/06/25 14:00 03/11/25 06:21 100 MLS/HR Hydromorphone HCl 1 mg Q3HPRN PRN IV 03/06/25 11:00 03/08/25 05:53 1 MG Ondansetron HCl 4 mg Q4HPRN PRN IV 03/06/25 11:00 03/08/25 05:54 4 MG Pantoprazole Sodium 40 mg DAILY IV 03/07/25 10:00 03/10/25 10:27 40 MG General: Normal, Well developed, Obese Head/Eyes: Normal ENT: Normal Neck: Normal Lungs: Normal Cardiovascular: Normal, Regular rate and rhythm Abdominal: Other (non tender ) Extremities: Normal Skin: Normal Labs and Microbiology Laboratory Tests 03/10/25 18:15 Test 03/10/25 18:15 Range/Units Serum Glucose 103 74-106 mg/dL Ass/Plan Labs and/or images reviewed: Labs reviewed by me, Image(s) reviewed by me Problem List 03/07/25 LESS TENDER THAN BEFORE OPERATION, OPERATIVE FINDINGS DISCUSSED WITH PATIENT, WOUND CLEAN AND WELL APPROXIMATED, DRAINAGE NON PURULENT. WILL ADVANCE DIET AND AQMBULATION, POSSIBLY DC IN AM 03/09/25 doing well, less tender, wound clean and well approximated, drainage non purulent, no nausea, tolerating po, afebrile, needs to increase ambulation 03/10/25 doing well, ambulated, passing flatus, wound ok, she can be discharged tomorrow with po antibiotics, to return to see me in 10 days Assessment/Plan 03/08/25 patient feels much better today than yesterday some pain in lower abdomen slightly tender to lower abdomen wounds clean dry and intact denies nausea or vomiting tolerating diet DEYANIRA drain serous fluid Plan: continue current treatment 03/11/25 patient feeing better denies pain , nausea or vomiting wounds clean dry and intact denies nausea or vomiting tolerating diet , passing gas, BM DEYANIRA drain minimal serous fluid Plan: ok to dc per surgery point of view follow up in the surgery clinic Prognosis: Good Plan discussed with patient , Dr. Emerson Visit Coding Surgery Date of Service if different f: Mar 11, 2025 Billing Provider: DELISA EMERSON MD Surgery Visit Codes: [id number] INP/OBS CARE(HIGH) KENDAL GUERRERO NP Mar 11, 2025 09:31
--- NOTE | 2025-03-11 10:25 | DVHPN2 ---
Reviewed: Care Plan, H&P, Labs, Medications, Previous Orders, Radiology Changes from previous H/P or p: No Changes Eyes: No Pain, No Vision change, No Conjunctivae inflammation, No Eyelid inflammation, No Other, No Redness ENT: No Ear pain, No Ear discharge, No Nose pain, No Nose discharge, No Nose congestion, No Mouth pain, No Mouth swelling, No Throat pain, No Throat swelling, No Other Cardiovascular: No Chest Pain, No Palpitations, No Orthopnea, No Paroxysmal Noc. Dyspnea, No Edema, No Lt Headedness, No Other Respiratory: No Cough, No Dry, No Shortness of breath, No SOB with excertion, No Wheezing, No Hemoptysis, No Pleuritic Pain, No Sputum, No Other Gastrointestinal: No Nausea, No Vomiting; Abdominal Pain; No Diarrhea, No Constipation, No Melena, No Hematochezia, No Other Genitourinary: No Dysuria, No Frequency, No Incontinence, No Hematuria, No Retention, No Other Musculoskeletal: No other, No neck pain, No shoulder pain, No arm pain, No back pain, No hand pain, No leg pain, No foot pain Skin: No Rash, No Lesions, No Jaundice, No Bruising, No Other Objective Vitals Vital Signs Date Time Temp Pulse Resp B/P (MAP) Pulse Ox O2 Delivery O2 Flow Rate FiO2 03/11/25 09:52 121/72 03/11/25 09:00 98.1 63 16 99 98.1 03/10/25 20:00 Room Air* 0 21 Intake/Output Intake and Output 03/11/25 07:00 Intake Total 3320 ml Balance 3320 ml Intake Oral 1220 ml IV Total 2100 ml # Voids 10 Medications Current Medications Medications Dose Ordered Sig/Tavo Route Start Time Stop Time Status Last Admin Dose Admin Diagnostic Test (Pha) 1 strip ACHS 03/03/25 22:00 03/11/25 05:50 1 STRIP Insulin Human Regular ACHS SC 03/03/25 22:00 Dextrose 50 ml UD PRN IV 03/03/25 18:45 Sodium Chloride 10 ml Q8HR IV 03/03/25 22:00 03/11/25 09:31 10 ML Acetaminophen/ Hydrocodone Bitart 1 tab Q4HP PRN PO 03/03/25 18:45 03/11/25 10:02 1 TAB Docusate Sodium 100 mg BIDPRN PRN PO 03/03/25 18:45 03/09/25 06:23 100 MG Acetaminophen 650 mg Q6HP PRN PO 03/03/25 18:45 03/11/25 02:03 650 MG Nitroglycerin 0.4 mg Q5MINP PRN SL 03/03/25 19:15 Morphine Sulfate 2 mg Q30M PRN IV 03/03/25 19:15 03/05/25 04:25 2 MG Diphenhydramine HCl 25 mg Q8HP PRN PO 03/04/25 14:30 03/05/25 06:37 25 MG Hydralazine HCl 50 mg Q12HR PO 03/04/25 22:00 03/11/25 09:35 50 MG Nifedipine 60 mg DAILY PO 03/05/25 10:00 03/11/25 09:52 60 MG Potassium Chloride/Dextrose/ Sod Cl 1,000 ml @ 120 mls/hr Q8H20M IV 03/06/25 11:00 03/10/25 23:20 120 MLS/HR Ceftriaxone Sodium 50 ml @ 100 mls/hr DAILY@09 IV 03/07/25 09:00 03/11/25 09:53 100 MLS/HR Metronidazole 100 ml @ 100 mls/hr Q8HR IV 03/06/25 14:00 03/11/25 06:21 100 MLS/HR Hydromorphone HCl 1 mg Q3HPRN PRN IV 03/06/25 11:00 03/08/25 05:53 1 MG Ondansetron HCl 4 mg Q4HPRN PRN IV 03/06/25 11:00 03/08/25 05:54 4 MG Pantoprazole Sodium 40 mg DAILY IV 03/07/25 10:00 03/11/25 09:35 40 MG Laboratory Results Laboratory Tests 03/10/25 18:15 Chemistry Test 03/10/25 18:15 Albumin 4.2 g/dL (3.2-4.8) Calcium Level 8.8 mg/dL (8.7-10.4) Total Protein 7.2 g/dL (5.7-8.2) LFT Test 03/10/25 18:15 Alanine Aminotransferase (ALT) 22 U/L (7-40) Alkaline Phosphatase 76 U/L (46-116) Aspartate Amino Transferase (AST) 17 U/L (13-40) Total Bilirubin 0.2 mg/dL (0.2-1.0) Urinalysis Test 03/03/25 15:20 Urine Color Light-yellow (Yellow) Urine Clarity Turbid (Clear) H Urine pH 6.0 (5.0-9.0) Urine Specific [place] 1.017 (1.001-1.035) Urine Protein Negative (Negative) Urine Ketones Negative (Negative) Urine Blood Negative /uL (Negative) Urine Nitrite Negative (Negative) Urine Bilirubin Negative (Negative) Urine Urobilinogen Normal mg/dL (Negative) Urine Leukocyte Esterase 1+ /uL (Negative) Urine RBC 3 /hpf (0 - 4) Urine Microscopic WBC 5 /HPF (0-5) Urine Squamous Epithelial Cells Mod /hpf (<5) Urine Bacteria Few /hpf (None Seen) H Urine Glucose Normal mg/dL (Normal) Microbiology Microbiology Date/Time Source Procedure Growth Status 03/05/25 13:57 Blood Blood Culture - Final NO GROWTH AFTER 5 DAYS OF INCUBATION. Complete 03/03/25 15:20 Voided Urine Urine Culture - Final Complete Labs and/or images reviewed: Labs reviewed by me, Image(s) reviewed by me Assessment/Plan Assessment/Plan Acute abdominal pain History of umbilical hernia repair with mesh in [place] August 2024 History of liposuction one week ago at [place] Possible anterior abdominal wall infection following liposuction or periumbilical hernia mesh infection; Status post umbilical hernia repair with removal of infected mesh by Dr. Emerson on 03/06/2025 with the following findings: * Extensive inflammatory changes due to recent liposuction. * Incarcerated umbilical hernia. * Infected mesh from previous hernia repair. Acute urinary tract infection: Rocephin Umbilical hernia Diabetes Hypertension Time Spent 50 minutes Patient is full code Advanced care planning time 20 minutes Patient's has [facility], advised her to changed to [facility]. SRUTHI Kelly at bedside Repeat CT abdomen pelvis without contrast shows diffuse anterior abdominal wall infection no localization of pus Physical therapy ordered Patient feeling better less nausea Continue Current management Plan discussed with: Patient Date of Service: Mar 11, 2025 Billing Provider: LEÓN BAUGH MD Common Visit Codes: [id number] INP/OBS CARE(HIGH) LEÓN BAUGH MD Mar 11, 2025 10:25
[2025-03-11 13:00] VITALS: BP 121/73; PULSE 77; RESP 17; TEMP 97.9; O2SAT 99
[2025-03-11 17:03] VITALS: BP 116/71; PULSE 98; RESP 20; TEMP 98.6; O2SAT 97
[2025-03-11 21:00] VITALS: BP 128/71; PULSE 63; RESP 16; TEMP 98.6; O2SAT 100
[2025-03-12] VITALS (7 sets, daily range): BP systolic 101–129; BP diastolic 59–70; PULSE 59–86; RESP 16–19; TEMP 97.7–98.7; O2SAT 97–99
--- NOTE | 2025-03-12 09:49 | DVHPN2 ---
Progress Note Date Seen: Mar 12, 2025 Medical Necessity Reason Pt with a Central, PICC or Fol: No Objective vital signs Vital Sign Date Time Temp Pulse Resp B/P (MAP) Pulse Ox O2 Delivery O2 Flow Rate FiO2 03/12/25 04:53 98.0 67 16 121/59 (79) 98 98.0 03/11/25 20:00 Room Air* 0 21 Total Intake and Output 03/11/25 03/11/25 03/12/25 15:00 23:00 07:00 Intake Total 1300 ml 1200 ml Output Total 25 ml 5 ml Balance -25 ml 1295 ml 1200 ml medications Current Medications Medications Dose Ordered Sig/Tavo Route Start Time Stop Time Status Last Admin Dose Admin Diagnostic Test (Pha) 1 strip ACHS 03/03/25 22:00 03/12/25 06:05 1 STRIP Insulin Human Regular ACHS SC 03/03/25 22:00 Dextrose 50 ml UD PRN IV 03/03/25 18:45 Sodium Chloride 10 ml Q8HR IV 03/03/25 22:00 03/12/25 05:45 10 ML Acetaminophen/ Hydrocodone Bitart 1 tab Q4HP PRN PO 03/03/25 18:45 03/12/25 06:05 1 TAB Docusate Sodium 100 mg BIDPRN PRN PO 03/03/25 18:45 03/09/25 06:23 100 MG Acetaminophen 650 mg Q6HP PRN PO 03/03/25 18:45 03/11/25 19:47 650 MG Nitroglycerin 0.4 mg Q5MINP PRN SL 03/03/25 19:15 Morphine Sulfate 2 mg Q30M PRN IV 03/03/25 19:15 03/05/25 04:25 2 MG Diphenhydramine HCl 25 mg Q8HP PRN PO 03/04/25 14:30 03/05/25 06:37 25 MG Hydralazine HCl 50 mg Q12HR PO 03/04/25 22:00 03/11/25 09:35 50 MG Nifedipine 60 mg DAILY PO 03/05/25 10:00 03/11/25 09:52 60 MG Potassium Chloride/Dextrose/ Sod Cl 1,000 ml @ 120 mls/hr Q8H20M IV 03/06/25 11:00 03/11/25 14:33 120 MLS/HR Ceftriaxone Sodium 50 ml @ 100 mls/hr DAILY@09 IV 03/07/25 09:00 03/11/25 09:53 100 MLS/HR Metronidazole 100 ml @ 100 mls/hr Q8HR IV 03/06/25 14:00 03/12/25 05:45 100 MLS/HR Hydromorphone HCl 1 mg Q3HPRN PRN IV 03/06/25 11:00 03/08/25 05:53 1 MG Ondansetron HCl 4 mg Q4HPRN PRN IV 03/06/25 11:00 03/08/25 05:54 4 MG Pantoprazole Sodium 40 mg DAILY IV 03/07/25 10:00 03/11/25 09:35 40 MG laboratory and microbiology Laboratory Tests 03/10/25 18:15 Test 03/10/25 18:15 Range/Units Serum Glucose 103 74-106 mg/dL Problem List/Assessment/Plan Problem List/Assessment/Plan 03/07/25 LESS TENDER THAN BEFORE OPERATION, OPERATIVE FINDINGS DISCUSSED WITH PATIENT, WOUND CLEAN AND WELL APPROXIMATED, DRAINAGE NON PURULENT. WILL ADVANCE DIET AND AQMBULATION, POSSIBLY DC IN AM 03/09/25 doing well, less tender, wound clean and well approximated, drainage non purulent, no nausea, tolerating po, afebrile, needs to increase ambulation 03/10/25 doing well, ambulated, passing flatus, wound ok, she can be discharged tomorrow with po antibiotics, to return to see me in 10 days 03/12/25 doing well, she is awaiting discharge, i need to see her in about 10 days after discharge she may shower Plan discussed with: Patient, Son Dietary Evaluation Review Comments: 1) Advance to [facility] 60gm GI soft diet as medically feasible 2) Refer Truck Bench Mechanic for diabetes education 3) Monitor NPO status, lab values, weight trend, and I/O Expected Outcomes/Goals: To meet >75% estimated needs Fu 2-3 days DELISA EGAN MD Mar 12, 2025 09:49
[2025-03-12] MEDS ORDERED: METR-344 PO (11:32)
[2025-03-12] MEDS ORDERED: LEVO500T91 PO (11:32)
[2025-03-12] MEDS ORDERED: IBUP-1454 PO (11:32)
--- NOTE | 2025-03-12 11:39 | DVHDS2 ---
Discharge Summary Date of Admission Mar 03, 2025 at 19:12 Date of Discharge: Mar 12, 2025 Admitting Diagnosis Lower abdominal pain Wounds: Umbilical hernia repair Labs/Diagnostic Data: Laboratory Results Test 03/12/25 05:54 03/10/25 18:15 03/05/25 11:58 03/04/25 06:10 POC Glucose 103 mg/dl (70-106) White Blood Count 9.7 10^3/uL (4.4-10.8) Red Blood Count 4.60 10^6/uL (4.0-5.20) Hemoglobin 12.6 g/dL (12.2-16.2) Hematocrit 38.2 % (36.0-46.0) Mean Corpuscular Volume 83.0 fL (80.0-100.0) Mean Corpuscular Hemoglobin 27.4 pg (28.0-32.0) Mean Corpuscular Hemoglobin Concent 33.1 g/dL (32.0-36.0) Red Cell Distribution Width 14.9 % (11.8-14.3) Platelet Count 541 10^3/uL (140-450) Mean Platelet Volume 6.8 fL (6.9-10.8) Neutrophils (%) (Auto) 68.6 % (37.0-80.0) Lymphocytes (%) (Auto) 21.0 % (10.0-50.0) Monocytes (%) (Auto) 5.3 % (0.0-12.0) Eosinophils (%) (Auto) 4.3 % (0.0-7.0) Basophils (%) (Auto) 0.8 % (0.0-2.0) Neutrophils # (Auto) 6.7 10 ^3/uL (1.6-8.6) Lymphocytes # (Auto) 2.0 10 ^3/uL (0.4-5.4) Monocytes # (Auto) 0.5 10 ^3/uL (0-1.3) Eosinophils # (Auto) 0.4 10 ^3/uL (0-0.8) Basophils # (Auto) 0.1 10 ^3/uL (0-0.2) Nucleated Red Blood Cells 0.0 % Sodium Level 140 mmol/L (136-145) Potassium Level 3.5 mmol/L (3.5-5.1) Chloride Level 106 mmol/L (98-107) Carbon Dioxide Level 24 mmol/L (20-31) Anion Gap 10 (5-15) Blood Urea Nitrogen 6 mg/dL (9-23) Creatinine 0.96 mg/dL (0.550-1.02) Glomerular Filtration Rate Calc 72 mL/min (>90) BUN/Creatinine Ratio 6.3 (10.0-20.0) Serum Glucose 103 mg/dL (74-106) Calcium Level 8.8 mg/dL (8.7-10.4) Total Bilirubin 0.2 mg/dL (0.2-1.0) Aspartate Amino Transferase (AST) 17 U/L (13-40) Alanine Aminotransferase (ALT) 22 U/L (7-40) Alkaline Phosphatase 76 U/L (46-116) Total Protein 7.2 g/dL (5.7-8.2) Albumin 4.2 g/dL (3.2-4.8) Prothrombin Time 10.7 sec (9.3-11.8) Prothrombin Time INR 1.01 (0.9-1.15) Activated Partial Thromboplast Time 25.6 SEC (24.5-34.5) Lipase 28 U/L (12-53) Test 03/03/25 15:20 Urine Color Light-yellow (Yellow) Urine Clarity Turbid (Clear) Urine pH 6.0 (5.0-9.0) Urine Specific Carbon 1.017 (1.001-1.035) Urine Protein Negative (Negative) Urine Ketones Negative (Negative) Urine Blood Negative /uL (Negative) Urine Nitrite Negative (Negative) Urine Bilirubin Negative (Negative) Urine Urobilinogen Normal mg/dL (Negative) Urine Leukocyte Esterase 1+ /uL (Negative) Urine RBC 3 /hpf (0 - 4) Urine Microscopic WBC 5 /HPF (0-5) Urine Squamous Epithelial Cells Mod /hpf (<5) Urine Bacteria Few /hpf (None Seen) Urine Glucose Normal mg/dL (Normal) Other Laboratory Tests 03/10/25 18:15 Brief Hx & Hospital Course: 49-year-old female had liposuction one week ago in [place] came to [facility] complaining of abdominal pain. Found to have infection secondary to liposuction treated with Rocephin and Flagyl. The patient has a history of umbilical hernia repair with a mesh at [facility] [place] August 2024. Seen by surgeon Dr. Vides and the patient underwent umbilical hernia removed with the removal of infected mesh. The umbilical hernia was found to be incarcerated. Postop course uneventful mild acute urinary tract infection treated with Rocephin patient has a history of diabetes hypertension. Cleared for discharge by the surgeon on p.o. antibiotics. At the time of discharge patient is afebrile vital signs minimal abdominal pain tolerating regular diet. Discharged home on Levaquin Flagyl and ibuprofen she will follow up with surgeon in 10 days. Consults/Reason for consult Surgeon Dr. Emerson Operations or Procedures Repair of umbilical hernia Condition at Discharge: Fair Final Diagnosis/Problems List Acute abdominal pain History of umbilical hernia repair with mesh in [place] August 2024 History of liposuction one week ago at [place] Possible anterior abdominal wall infection following liposuction or periumbilical hernia mesh infection; Status post umbilical hernia repair with removal of infected mesh by Dr. Emerson on 03/06/2025 with the following findings: * Extensive inflammatory changes due to recent liposuction. * Incarcerated umbilical hernia. * Infected mesh from previous hernia repair. Acute urinary tract infection: Rocephin Umbilical hernia Diabetes Hypertension Discharge Disposition: Home Discharge Instruct/Medications Diet: Consistent carbohydrate Activity: Light activity Follow Up/Referral: Resume all previous home medications Use new medications as prescribed Follow up with your primary Dr in one week Follow up with surgeon Dr. Emerson in 10 days Medications: Levaquin Flagyl Ibuprofen Transmitted [facility] Scheduled Hydralazine Hcl (Hydralazine Hcl), 1 TAB PO BID, (Reported) Ibuprofen (Ibuprofen), 1 TAB PO TID Levofloxacin Hemihydrate (Levaquin 500 Mg), 1 TAB PO DAILY Metformin Hydrochloride (Metformin Hcl), 1 TAB PO BID, (Reported) Metronidazole (Flagyl), 1 TAB PO TID Nifedipine (Nifedipine Er), 1 TAB PO DAILY, (Reported) 40 (Time taken for discharge summary 40 minutes) Discharge Statement: "Patient was advised to return to the ER or call 911 if any headaches, dizziness, shortness of breath, chest pain, abdominal pain, bleeding, fevers, or worsening of medical condition. Patient was counseled about treatment plan, medications, possible side effects, patientverbalized understanding. All questions were answered to the best of my ability. This discharge took greater then 30 minutes in planning, reviewing documentation, counseling the patient, and discussing with other team members." ASSESSMENT ASSESSMENT Hospital Course Uneventful Assessment Acute abdominal pain History of umbilical hernia repair with mesh in [place] August 2024 History of liposuction one week ago at [place] Possible anterior abdominal wall infection following liposuction or periumbilical hernia mesh infection; Status post umbilical hernia repair with removal of infected mesh by Dr. Emerson on 03/06/2025 with the following findings: * Extensive inflammatory changes due to recent liposuction. * Incarcerated umbilical hernia. * Infected mesh from previous hernia repair. Acute urinary tract infection: Rocephin Umbilical hernia Diabetes Hypertension Date of Service: Mar 12, 2025 Billing Provider: LEÓN BAUGH MD Common Visit Codes: 08751-WPG/OBS DISCH DAY >30min LEÓN BAUGH MD Mar 12, 2025 11:39
== END 2025-03-12 16:50 | disposition home or self-care (01) | DRG 711 ==
LOC: ER 11:29 → OVERFLOW 19:12 → EAST 21:34
PROVIDERS: ADMIT Family Medicine; ATTEND Family Medicine
PROC: 05HF33Z Insertion of Infusion Device into Left Cephalic Vein, Percutaneous Approach (ICD-10-PCS; 2025-03-06)
PROC: 0WPF0JZ Removal of Synthetic Substitute from Abdominal Wall, Open Approach (ICD-10-PCS; principal; 2025-03-06 09:47)
PROC: B54NZZA Ultrasonography of Left Upper Extremity Veins, Guidance (ICD-10-PCS; 2025-03-11)
DX: T85.79XA Infection and inflammatory reaction due to other internal prosthetic devices, implants and grafts, initial encounter (principal); K42.0 Umbilical hernia with obstruction, without gangrene; K76.0 Fatty (change of) liver, not elsewhere classified; L03.311 Cellulitis of abdominal wall; J43.9 Emphysema, unspecified; I10 Essential (primary) hypertension; E11.9 Type 2 diabetes mellitus without complications; N30.00 Acute cystitis without hematuria; K57.30 Diverticulosis of large intestine without perforation or abscess without bleeding; Z84.1 Family history of disorders of kidney and ureter; Z83.3 Family history of diabetes mellitus; Z82.49 Family history of ischemic heart disease and other diseases of the circulatory system; Z82.3 Family history of stroke; Y83.2 Surgical operation with anastomosis, bypass or graft as the cause of abnormal reaction of the patient, or of later complication, without mention of misadventure at the time of the procedure
CPT/HCPCS: 36415; 71045; 74176; 80048; 80053; 81001; 82962; 83690; 85025; 85610; 85730; 87040; 87086; 93005; 96365; 96375; 97116; 97162; 97530; G0378; J0131; J0690; J1100; J1815; J1885; J2250; J2405; J2470; J2704; J3490